=== PATIENT | male | born 1970 | race African-American/Black ===

== ENCOUNTER 2020-10-22 23:03 | Inpatient (IN) ==
[2020-10-23 03:10] LABS: Basophils % 0.5 % (0.0-0.8); Eosinophils # 0.1 10*3/uL (0.0-0.87); Eosinophils % 0.8 % (0.00-10.9); Hematocrit 47.4 VOL% (42.0-52.0); Hemoglobin 14.9 GM/DL (14.0-18.0); Immature Granulocytes % 0.3 %; Immature Granulocytes Absolute 0.03 #; Lymphocytes # 1.9 10*3/uL (1.4-4.0); Lymphocytes % 21.4 % (21.2-54.2); Mean Corpuscular HGB Conc 31.4 GM/DL (32-36); Mean Corpuscular Volume 95.8 FL (87-102); Mean Platelet Volume 12.1 FL (9.6-12.0); Monocytes % 7.7 % (1.7-12.7); Neutrophils % 69.3 % (38.7-73.9); Platelet Count 269 T/CUMM (130-400); Red Blood Count 4.95 MC/CUMM (3.8-5.5); Red Cell Distribution Width 13.2 % (9.3-17.3); White Blood Count 8.8 T/CUMM (4-12)
[2020-10-23 03:22] LABS: Albumin 3.3 G/DL (3.4-5.0); Bilirubin,Total 0.9 MG/DL (0.20-1.00); Calcium 8.7 MG/DL (8.5-10.1); Osmolality,Calculated 286.3 MOS/KG (273-304); Potassium 4.1 MMOL/L (3.5-5.1); Total Protein 6.9 G/DL (6.4-8.2)
[2020-10-23] MEDS ORDERED: FUROSEMIDE 40 MG/4 ML VIAL IV STA (03:36)
[2020-10-23] MEDS ORDERED: ALBUTEROL/IPRATROPIUM 3 ML NEB RESP TX STA (03:46)
[2020-10-23 04:21] LABS: Bilirubin,Urine Negative (Negative); Blood, Urine Negative (Negative); Glucose,Urine (UA) Negative (Negative); Ketones,Urine Negative (Negative); Nitrite,Urine Negative (Negative); Protein,Urine Negative; RBC,Urine 1 /HPF (0-4); Urine Appearance CLEAR (Clear); Urine Color Straw (Yellow); Urine Specific Gravity 1.008 (1.001-1.035); Urine Urobilinogen < 2.0 EU/DL (0.2-1.0)
[2020-10-23] MEDS ORDERED: MAGNESIUM SULF RIDER 4 GM/100 ML PREMIX IV PRN (04:45)
[2020-10-23] MEDS ORDERED: MAGNESIUM SULF RIDER 2 GM/50 ML PREMIX IV PRN (04:45)
[2020-10-23] MEDS ORDERED: DEXTROSE 50% 25 GM/50 ML VIAL IV PRN (04:45)
[2020-10-23] MEDS ORDERED: ONDANSETRON 4 MG/2 ML VIAL IV PRN (04:45)
[2020-10-23] MEDS ORDERED: GLUCAGON 1 MG VIAL IM PRN (04:45)
[2020-10-23] MEDS ORDERED: ZALEPLON 5 MG CAPSULE PO PRN (04:45)
[2020-10-23 07:22] LABS: Barbiturates Screen,Urine Negative (Negative); Benzodiazepines Screen,Urine Negative (Negative); Cannabinoid Screen,Urine Negative (Negative); Opiate Screen,Urine Negative (Negative); Phencyclidine Screen,Urine Negative (Negative)
[2020-10-23] MEDS: ENOXAPARIN 40 MG/0.4 ML SYRINGE SUBCUT SCH (07:48)
[2020-10-23] MEDS: INSULIN REGULAR 100 UNIT/ML SUBCUT SCH ×4 (07:48→21:01)
[2020-10-23] MEDS: METOPROLOL TARTRATE 25 MG TABLET PO SCH ×2 (08:50→21:01)
[2020-10-23] MEDS: PANTOPRAZOLE 40 MG TABLET PO SCH (08:50)
[2020-10-23] MEDS: ASPIRIN EC 81 MG TABLET PO SCH (08:50)
[2020-10-23] MEDS: SPIRONOLACTONE 25 MG TABLET PO SCH ×2 (12:24→21:01)
[2020-10-23] MEDS: FUROSEMIDE 40 MG/4 ML VIAL IV SCH ×2 (14:11→16:25)
[2020-10-23] MEDS: ACETAMINOPHEN 325 MG TABLET PO PRN (18:42)
[2020-10-24] MEDS: ACETAMINOPHEN 325 MG TABLET PO PRN (01:13)
[2020-10-24 05:54] LABS: Basophils % 0.3 % (0.0-0.8); Eosinophils # 0.1 10*3/uL (0.0-0.87); Eosinophils % 1.4 % (0.00-10.9); Hemoglobin 13.9 GM/DL (14.0-18.0); Immature Granulocytes % 0.7 %; Immature Granulocytes Absolute 0.07 #; Lymphocytes # 2.4 10*3/uL (1.4-4.0); Lymphocytes % 22.8 % (21.2-54.2); Mean Corpuscular HGB Conc 30.9 GM/DL (32-36); Mean Platelet Volume 11.2 FL (9.6-12.0); Monocytes % 7.8 % (1.7-12.7); Platelet Count 251 T/CUMM (130-400); Red Blood Count 4.64 MC/CUMM (3.8-5.5); Red Cell Distribution Width 13.3 % (9.3-17.3); White Blood Count 10.3 T/CUMM (4-12)
[2020-10-24] MEDS: ENOXAPARIN 40 MG/0.4 ML SYRINGE SUBCUT SCH (06:04)
[2020-10-24 06:18] LABS: Calcium 8.9 MG/DL (8.5-10.1); Osmolality,Calculated 281.5 MOS/KG (273-304); Potassium 3.8 MMOL/L (3.5-5.1)
[2020-10-24 06:22] LABS: Bilirubin,Total 0.5 MG/DL (0.20-1.00); Calcium 8.8 MG/DL (8.5-10.1); Osmolality,Calculated 285.3 MOS/KG (273-304); Potassium 3.9 MMOL/L (3.5-5.1); Total Protein 6.5 G/DL (6.4-8.2)
[2020-10-24] MEDS: METOPROLOL TARTRATE 25 MG TABLET PO SCH (08:11)
[2020-10-24] MEDS: SPIRONOLACTONE 25 MG TABLET PO SCH ×2 (08:11→20:52)
[2020-10-24] MEDS: ASPIRIN EC 81 MG TABLET PO SCH (08:11)
[2020-10-24] MEDS: PANTOPRAZOLE 40 MG TABLET PO SCH (08:11)
[2020-10-24] MEDS: FUROSEMIDE 40 MG/4 ML VIAL IV SCH (08:12)
[2020-10-24] MEDS: INSULIN REGULAR 100 UNIT/ML SUBCUT SCH ×4 (08:16→20:52)
[2020-10-24] MEDS: METOPROLOL SUCCINATE XL 25 MG TABLET PO SCH (09:29)
[2020-10-24] MEDS: FUROSEMIDE 40 MG TABLET PO SCH (09:29)
[2020-10-24] MEDS: SACUBITRIL/VALSARTAN 49-51 MG TABLET PO SCH ×2 (10:39→20:51)
[2020-10-24] MEDS ORDERED: DEXTROSE 50% 25 GM/50 ML VIAL IV PRN (11:41)
[2020-10-25] MEDS: ENOXAPARIN 40 MG/0.4 ML SYRINGE SUBCUT SCH (04:25)
[2020-10-25 05:16] LABS: Calcium 8.6 MG/DL (8.5-10.1); Osmolality,Calculated 280.5 MOS/KG (273-304); Potassium 3.9 MMOL/L (3.5-5.1)
[2020-10-25 05:21] LABS: Risk Ratio 4.86; VLDL Cholesterol 55.6 MG/DL
[2020-10-25] MEDS: PANTOPRAZOLE 40 MG TABLET PO SCH (08:20)
[2020-10-25] MEDS: ASPIRIN EC 81 MG TABLET PO SCH (08:20)
[2020-10-25] MEDS: SPIRONOLACTONE 25 MG TABLET PO SCH ×2 (08:20→20:55)
[2020-10-25] MEDS: SACUBITRIL/VALSARTAN 49-51 MG TABLET PO SCH ×2 (08:20→20:55)
[2020-10-25] MEDS: METOPROLOL SUCCINATE XL 25 MG TABLET PO SCH (08:21)
[2020-10-25] MEDS: FUROSEMIDE 40 MG TABLET PO SCH (08:21)
[2020-10-25] MEDS ORDERED: FUROSEMIDE 40 MG/4 ML VIAL IV ONE (08:25)
[2020-10-25] MEDS: INSULIN REGULAR 100 UNIT/ML SUBCUT SCH ×4 (10:36→20:50)
[2020-10-26] MEDS: ENOXAPARIN 40 MG/0.4 ML SYRINGE SUBCUT SCH (04:50)
[2020-10-26 05:53] LABS: Calcium 8.8 MG/DL (8.5-10.1); Osmolality,Calculated 283.4 MOS/KG (273-304); Potassium 4.4 MMOL/L (3.5-5.1)
[2020-10-26] MEDS: PANTOPRAZOLE 40 MG TABLET PO SCH (09:46)
[2020-10-26] MEDS: FUROSEMIDE 40 MG TABLET PO SCH (09:47)
[2020-10-26] MEDS: METOPROLOL SUCCINATE XL 25 MG TABLET PO SCH (09:47)
[2020-10-26] MEDS: SACUBITRIL/VALSARTAN 49-51 MG TABLET PO SCH (09:47)
[2020-10-26] MEDS: SPIRONOLACTONE 25 MG TABLET PO SCH (09:47)
[2020-10-26] MEDS: ASPIRIN EC 81 MG TABLET PO SCH (09:47)
[2020-10-26] MEDS: INSULIN REGULAR 100 UNIT/ML SUBCUT SCH (09:54)
[2020-10-26 12:11] VITALS: BP 105/74
== END 2020-10-26 12:29 | disposition home or self-care (01) | DRG 293 ==
LOC: N.EDINP 23:03 → N.ED 23:03 → SUATTDRO 10-23 04:45 → N.EDINP 10-23 12:30 → N.TELEN 10-23 12:35 → SUATTDRO 10-24 16:01
PROVIDERS: ADMIT Hospitalist; ATTEND Internal Medicine Geriatric Medicine

== ENCOUNTER 2021-01-05 18:15 | Inpatient (IN) ==
[2021-01-05 20:17] LABS: Basophils % 0.5 % (0.0-0.8); Eosinophils % 0.4 % (0.00-10.9); Hematocrit 52.2 VOL% (42.0-52.0); Hemoglobin 16.2 GM/DL (14.0-18.0); Immature Granulocytes % 0.6 %; Immature Granulocytes Absolute 0.05 #; Lymphocytes # 2.5 10*3/uL (1.4-4.0); Mean Corpuscular Volume 93.9 FL (87-102); Mean Platelet Volume 12.2 FL (9.6-12.0); Monocytes % 7.4 % (1.7-12.7); Neutrophils % 60.1 % (38.7-73.9); Platelet Count 233 T/CUMM (130-400); Red Blood Count 5.56 MC/CUMM (3.8-5.5); Red Cell Distribution Width 13.8 % (9.3-17.3)
[2021-01-05 20:36] LABS: Calcium 9.4 MG/DL (8.5-10.1); Osmolality,Calculated 285.5 MOS/KG (273-304); Potassium 3.8 MMOL/L (3.5-5.1)
[2021-01-05 21:31] LABS: INR 1.1; PT Patient Result 12.6 SECS (10.5-12.0)
[2021-01-05 21:42] LABS: Albumin 3.5 G/DL (3.4-5.0); Bilirubin,Total 1.5 MG/DL (0.20-1.00); Osmolality,Calculated 281.7 MOS/KG (273-304); Total Protein 7.3 G/DL (6.4-8.2)
[2021-01-05] MEDS ORDERED: GLUCAGON 1 MG VIAL IM PRN (23:28)
[2021-01-05] MEDS ORDERED: DEXTROSE 50% 25 GM/50 ML VIAL IV PRN (23:28)
[2021-01-05] MEDS ORDERED: ONDANSETRON 4 MG/2 ML VIAL IV PRN (23:28)
[2021-01-06 06:11] LABS: Basophils % 0.4 % (0.0-0.8); Eosinophils % 0.5 % (0.00-10.9); Hematocrit 48.1 VOL% (42.0-52.0); Immature Granulocytes % 0.4 %; Immature Granulocytes Absolute 0.03 #; Lymphocytes # 2.3 10*3/uL (1.4-4.0); Lymphocytes % 27.5 % (21.2-54.2); Mean Corpuscular HGB Conc 31.2 GM/DL (32-36); Mean Corpuscular Volume 92.5 FL (87-102); Mean Platelet Volume 11.7 FL (9.6-12.0); Monocytes % 7.6 % (1.7-12.7); Neutrophils % 63.6 % (38.7-73.9); Platelet Count 209 T/CUMM (130-400); Red Cell Distribution Width 13.7 % (9.3-17.3); White Blood Count 8.4 T/CUMM (4-12)
[2021-01-06 07:59] LABS: Osmolality,Calculated 283.5 MOS/KG (273-304); Potassium 3.8 MMOL/L (3.5-5.1)
[2021-01-06] MEDS ORDERED: FUROSEMIDE 40 MG/4 ML VIAL IV SCH (09:00)
[2021-01-06] MEDS ORDERED: MAGNESIUM SULF RIDER 2 GM/50 ML PREMIX IV PRN (09:15)
[2021-01-06] MEDS ORDERED: POTASSIUM CHLORIDE RIDER 10 MEQ/100 ML PREMIX IV PRN (09:15)
[2021-01-06] MEDS: SPIRONOLACTONE 25 MG TABLET PO SCH ×2 (09:23→20:42)
[2021-01-06] MEDS: ASPIRIN EC 81 MG TABLET PO SCH (09:23)
[2021-01-06] MEDS: SACUBITRIL/VALSARTAN 49-51 MG TABLET PO SCH ×2 (09:23→20:42)
[2021-01-06] MEDS: METOPROLOL SUCCINATE XL 25 MG TABLET PO SCH (09:23)
[2021-01-06] MEDS: FUROSEMIDE 40 MG TABLET PO SCH ×2 (09:23→17:19)
[2021-01-06] MEDS: PANTOPRAZOLE 40 MG TABLET PO SCH (09:23)
[2021-01-06] MEDS: ENOXAPARIN 40 MG/0.4 ML SYRINGE SUBCUT SCH (09:24)
[2021-01-06] MEDS: CETIRIZINE 10 MG TABLET PO SCH (09:29)
[2021-01-06] MEDS: BENZONATATE 100 MG CAPSULE PO SCH ×3 (09:29→20:42)
[2021-01-06] MEDS ORDERED: DIAZEPAM 5 MG TABLET PO ONE (12:30)
[2021-01-06] MEDS ORDERED: LIDOCAINE 1%/EPI INJ 20 ML VIAL ONE ×2 (14:23→15:19)
[2021-01-06] MEDS ORDERED: HEPARIN/NACL 0.9% 2 UNITS/ML 2,000 UNIT/1,000 ML BAG IV ONE (14:23)
[2021-01-06] MEDS ORDERED: diphenhydrAMINE CAP 50 MG CAPSULE PO ONE (14:30)
[2021-01-06] MEDS ORDERED: MIDAZOLAM 2 MG/2 ML VIAL ONE (15:19)
[2021-01-06] MEDS ORDERED: fentaNYL 100 MCG/2 ML VIAL ONE (15:19)
[2021-01-06] MEDS ORDERED: TISSUE ADHESIVE 1 EACH APPLICATOR TOP ONE (16:42)
[2021-01-07 05:53] LABS: Basophils % 0.5 % (0.0-0.8); Eosinophils % 0.4 % (0.00-10.9); Hematocrit 47.5 VOL% (42.0-52.0); Immature Granulocytes % 0.6 %; Immature Granulocytes Absolute 0.05 #; Lymphocytes % 24.1 % (21.2-54.2); Mean Corpuscular HGB Conc 31.6 GM/DL (32-36); Mean Corpuscular Volume 92.2 FL (87-102); Monocytes % 8.6 % (1.7-12.7); Neutrophils % 65.8 % (38.7-73.9); Platelet Count 223 T/CUMM (130-400); Red Blood Count 5.15 MC/CUMM (3.8-5.5); Red Cell Distribution Width 13.8 % (9.3-17.3); White Blood Count 8.3 T/CUMM (4-12)
[2021-01-07 06:18] LABS: Calcium 8.4 MG/DL (8.5-10.1); Osmolality,Calculated 282.8 MOS/KG (273-304); Potassium 3.7 MMOL/L (3.5-5.1)
[2021-01-07] MEDS ORDERED: MAGNESIUM SULF RIDER 2 GM/50 ML PREMIX IV ONE (08:37)
[2021-01-07] MEDS: CETIRIZINE 10 MG TABLET PO SCH (09:45)
[2021-01-07] MEDS: PANTOPRAZOLE 40 MG TABLET PO SCH (09:46)
[2021-01-07] MEDS: FUROSEMIDE 40 MG TABLET PO SCH ×2 (09:46→15:05)
[2021-01-07] MEDS: ASPIRIN EC 81 MG TABLET PO SCH (09:46)
[2021-01-07] MEDS: SPIRONOLACTONE 25 MG TABLET PO SCH ×2 (09:46→21:09)
[2021-01-07] MEDS: BENZONATATE 100 MG CAPSULE PO SCH ×3 (09:46→21:09)
[2021-01-07] MEDS: ENOXAPARIN 40 MG/0.4 ML SYRINGE SUBCUT SCH (09:46)
[2021-01-07] MEDS: METOPROLOL SUCCINATE XL 25 MG TABLET PO SCH (09:47)
[2021-01-07] MEDS: SACUBITRIL/VALSARTAN 49-51 MG TABLET PO SCH (10:28)
[2021-01-07] MEDS: ALBUTEROL/IPRATROPIUM 3 ML NEB RESP TX SCH (20:10)
[2021-01-08] MEDS: ALBUTEROL/IPRATROPIUM 3 ML NEB RESP TX SCH ×4 (01:20→19:45)
[2021-01-08 04:13] LABS: Basophils # 0.1 10*3/uL (0.0-0.2); Eosinophils % 0.3 % (0.00-10.9); Hematocrit 46.1 VOL% (42.0-52.0); Hemoglobin 14.8 GM/DL (14.0-18.0); Immature Granulocytes % 0.4 %; Immature Granulocytes Absolute 0.04 #; Lymphocytes # 3.1 10*3/uL (1.4-4.0); Lymphocytes % 32.3 % (21.2-54.2); Mean Corpuscular HGB Conc 32.1 GM/DL (32-36); Mean Corpuscular Volume 91.3 FL (87-102); Monocytes % 7.9 % (1.7-12.7); Neutrophils % 58.1 % (38.7-73.9); Platelet Count 212 T/CUMM (130-400); Red Blood Count 5.05 MC/CUMM (3.8-5.5); White Blood Count 9.5 T/CUMM (4-12)
[2021-01-08 04:31] LABS: Calcium 8.4 MG/DL (8.5-10.1); Osmolality,Calculated 281.8 MOS/KG (273-304); Potassium 3.6 MMOL/L (3.5-5.1)
[2021-01-08] MEDS: ASPIRIN EC 81 MG TABLET PO SCH (10:06)
[2021-01-08] MEDS: METOPROLOL SUCCINATE XL 25 MG TABLET PO SCH (10:07)
[2021-01-08] MEDS: BENZONATATE 100 MG CAPSULE PO SCH ×3 (10:08→20:26)
[2021-01-08] MEDS: CETIRIZINE 10 MG TABLET PO SCH (10:08)
[2021-01-08] MEDS: PANTOPRAZOLE 40 MG TABLET PO SCH (10:08)
[2021-01-08] MEDS: SPIRONOLACTONE 25 MG TABLET PO SCH ×2 (10:08→20:27)
[2021-01-08] MEDS: FUROSEMIDE 40 MG TABLET PO SCH ×2 (10:09→15:41)
[2021-01-08] MEDS: ENOXAPARIN 40 MG/0.4 ML SYRINGE SUBCUT SCH (10:09)
[2021-01-08] MEDS ORDERED: SODIUM CHLORIDE 0.45% 1,000 ML IV SCH (11:00)
[2021-01-09] MEDS: ALBUTEROL/IPRATROPIUM 3 ML NEB RESP TX SCH ×4 (01:50→19:10)
[2021-01-09] MEDS ORDERED: DIGOXIN 0.5 MG/2 ML AMP IV ONE (06:44)
[2021-01-09 07:31] LABS: Basophils % 0.3 % (0.0-0.8); Eosinophils % 0.3 % (0.00-10.9); Hematocrit 45.5 VOL% (42.0-52.0); Hemoglobin 14.5 GM/DL (14.0-18.0); Immature Granulocytes % 0.4 %; Immature Granulocytes Absolute 0.04 #; Lymphocytes # 2.9 10*3/uL (1.4-4.0); Lymphocytes % 30.7 % (21.2-54.2); Mean Corpuscular HGB Conc 31.9 GM/DL (32-36); Mean Corpuscular Volume 90.6 FL (87-102); Mean Platelet Volume 11.8 FL (9.6-12.0); Monocytes % 7.3 % (1.7-12.7); Platelet Count 217 T/CUMM (130-400); Red Blood Count 5.02 MC/CUMM (3.8-5.5); Red Cell Distribution Width 14.3 % (9.3-17.3); White Blood Count 9.6 T/CUMM (4-12)
[2021-01-09 08:05] LABS: Calcium 8.8 MG/DL (8.5-10.1); Osmolality,Calculated 277.1 MOS/KG (273-304); Potassium 3.9 MMOL/L (3.5-5.1)
[2021-01-09] MEDS ORDERED: DIGOXIN 0.125 MG TABLET PO ONE (08:09)
[2021-01-09] MEDS: PANTOPRAZOLE 40 MG TABLET PO SCH (08:36)
[2021-01-09] MEDS: BENZONATATE 100 MG CAPSULE PO SCH ×3 (08:36→20:37)
[2021-01-09] MEDS: ASPIRIN EC 81 MG TABLET PO SCH (08:37)
[2021-01-09] MEDS: FUROSEMIDE 40 MG TABLET PO SCH ×2 (08:37→15:46)
[2021-01-09] MEDS: SPIRONOLACTONE 25 MG TABLET PO SCH ×2 (08:37→20:36)
[2021-01-09] MEDS: CETIRIZINE 10 MG TABLET PO SCH (08:37)
[2021-01-09] MEDS: ENOXAPARIN 40 MG/0.4 ML SYRINGE SUBCUT SCH (08:38)
[2021-01-09] MEDS: METOPROLOL SUCCINATE XL 25 MG TABLET PO SCH (08:38)
[2021-01-09] MEDS: ACETAMINOPHEN 325 MG TABLET PO PRN (14:28)
[2021-01-10] MEDS: ALBUTEROL/IPRATROPIUM 3 ML NEB RESP TX SCH ×3 (01:17→19:47)
[2021-01-10] MEDS: CETIRIZINE 10 MG TABLET PO SCH (08:57)
[2021-01-10] MEDS: SPIRONOLACTONE 25 MG TABLET PO SCH ×2 (08:57→20:39)
[2021-01-10] MEDS: ENOXAPARIN 40 MG/0.4 ML SYRINGE SUBCUT SCH (08:57)
[2021-01-10] MEDS: FUROSEMIDE 40 MG TABLET PO SCH ×2 (08:58→15:29)
[2021-01-10] MEDS: PANTOPRAZOLE 40 MG TABLET PO SCH (08:58)
[2021-01-10] MEDS: ASPIRIN EC 81 MG TABLET PO SCH (08:58)
[2021-01-10] MEDS: METOPROLOL SUCCINATE XL 25 MG TABLET PO SCH (08:58)
[2021-01-10] MEDS: BENZONATATE 100 MG CAPSULE PO SCH ×3 (08:58→20:39)
[2021-01-11] MEDS: ALBUTEROL/IPRATROPIUM 3 ML NEB RESP TX SCH ×5 (00:50→19:10)
[2021-01-11 08:46] LABS: Calcium 8.7 MG/DL (8.5-10.1); Osmolality,Calculated 280.1 MOS/KG (273-304)
[2021-01-11] MEDS: ASPIRIN EC 81 MG TABLET PO SCH (08:58)
[2021-01-11] MEDS: METOPROLOL SUCCINATE XL 25 MG TABLET PO SCH (08:58)
[2021-01-11] MEDS: BENZONATATE 100 MG CAPSULE PO SCH ×3 (08:58→21:16)
[2021-01-11] MEDS: ENOXAPARIN 40 MG/0.4 ML SYRINGE SUBCUT SCH (08:58)
[2021-01-11] MEDS: SPIRONOLACTONE 25 MG TABLET PO SCH ×2 (08:58→21:16)
[2021-01-11] MEDS: CETIRIZINE 10 MG TABLET PO SCH (08:58)
[2021-01-11] MEDS: FUROSEMIDE 40 MG TABLET PO SCH ×2 (08:58→16:27)
[2021-01-11] MEDS: PANTOPRAZOLE 40 MG TABLET PO SCH (08:59)
[2021-01-11 09:01] LABS: Basophils % 0.3 % (0.0-0.8); Eosinophils % 0.3 % (0.00-10.9); Hematocrit 45.6 VOL% (42.0-52.0); Hemoglobin 14.3 GM/DL (14.0-18.0); Immature Granulocytes % 0.5 %; Immature Granulocytes Absolute 0.06 #; Lymphocytes # 3.1 10*3/uL (1.4-4.0); Lymphocytes % 25.9 % (21.2-54.2); Mean Corpuscular HGB Conc 31.4 GM/DL (32-36); Mean Corpuscular Volume 92.5 FL (87-102); Mean Platelet Volume 12.4 FL (9.6-12.0); Monocytes % 7.9 % (1.7-12.7); Neutrophils % 65.1 % (38.7-73.9); Platelet Count 249 T/CUMM (130-400); Red Blood Count 4.93 MC/CUMM (3.8-5.5); Red Cell Distribution Width 14.6 % (9.3-17.3); White Blood Count 11.8 T/CUMM (4-12)
[2021-01-12] MEDS: ALBUTEROL/IPRATROPIUM 3 ML NEB RESP TX SCH ×3 (01:58→13:19)
[2021-01-12] MEDS: ACETAMINOPHEN 325 MG TABLET PO PRN (02:13)
[2021-01-12 07:15] LABS: Basophils % 0.2 % (0.0-0.8); Eosinophils % 0.2 % (0.00-10.9); Hematocrit 45.3 VOL% (42.0-52.0); Hemoglobin 14.5 GM/DL (14.0-18.0); Immature Granulocytes % 0.6 %; Immature Granulocytes Absolute 0.06 #; Lymphocytes # 2.4 10*3/uL (1.4-4.0); Mean Corpuscular Volume 92.1 FL (87-102); Mean Platelet Volume 12.5 FL (9.6-12.0); Monocytes % 9.6 % (1.7-12.7); Neutrophils % 64.4 % (38.7-73.9); Platelet Count 244 T/CUMM (130-400); Red Blood Count 4.92 MC/CUMM (3.8-5.5); Red Cell Distribution Width 14.7 % (9.3-17.3); White Blood Count 9.6 T/CUMM (4-12)
[2021-01-12 07:35] LABS: Osmolality,Calculated 283.7 MOS/KG (273-304)
[2021-01-12] MEDS: CETIRIZINE 10 MG TABLET PO SCH (08:20)
[2021-01-12] MEDS: BENZONATATE 100 MG CAPSULE PO SCH ×2 (08:20→15:09)
[2021-01-12] MEDS: ENOXAPARIN 40 MG/0.4 ML SYRINGE SUBCUT SCH (08:21)
[2021-01-12] MEDS: ASPIRIN EC 81 MG TABLET PO SCH (08:21)
[2021-01-12] MEDS: SPIRONOLACTONE 25 MG TABLET PO SCH (08:21)
[2021-01-12] MEDS: PANTOPRAZOLE 40 MG TABLET PO SCH (08:21)
[2021-01-12] MEDS: FUROSEMIDE 40 MG TABLET PO SCH ×2 (08:21→16:04)
[2021-01-12] MEDS: METOPROLOL SUCCINATE XL 25 MG TABLET PO SCH (08:21)
[2021-01-12] MEDS ORDERED: HYDROcodone/CHLORPHENIRAMINE ER 5 ML UDCUP PO PRN (09:33)
[2021-01-12 15:54] VITALS: BP 115/78
== END 2021-01-12 16:03 | disposition home or self-care (01) | DRG 287 ==
LOC: N.ED 18:15 → N.TELES 23:28 → SUATTDRO 23:28 → N.TELES 01-06 02:28
PROVIDERS: ADMIT Internal Medicine Geriatric Medicine; ATTEND Internal Medicine

== ENCOUNTER 2021-01-23 11:02 | Inpatient (IN) ==
[2021-01-23] MEDS ORDERED: ASPIRIN 325 MG TABLET PO STA (11:24)
[2021-01-23] MEDS ORDERED: FUROSEMIDE 40 MG/4 ML VIAL IV STA (11:24)
[2021-01-23] MEDS ORDERED: ONDANSETRON 4 MG/2 ML VIAL IV ONE (11:24)
[2021-01-23 11:47] LABS: Basophils % 0.2 % (0.0-0.8); Eosinophils # 0.1 10*3/uL (0.0-0.87); Eosinophils % 0.7 % (0.00-10.9); Hematocrit 46.6 VOL% (42.0-52.0); Hemoglobin 15.2 GM/DL (14.0-18.0); Immature Granulocytes % 0.3 %; Immature Granulocytes Absolute 0.03 #; Lymphocytes # 2.1 10*3/uL (1.4-4.0); Mean Corpuscular HGB Conc 32.6 GM/DL (32-36); Mean Corpuscular Volume 91.4 FL (87-102); Mean Platelet Volume 11.5 FL (9.6-12.0); Monocytes % 7.2 % (1.7-12.7); Neutrophils % 67.6 % (38.7-73.9); Platelet Count 279 T/CUMM (130-400); Red Cell Distribution Width 15.7 % (9.3-17.3); White Blood Count 8.7 T/CUMM (4-12)
[2021-01-23 12:03] LABS: Albumin 2.8 G/DL (3.4-5.0); Bilirubin,Total 1.7 MG/DL (0.20-1.00); Calcium 8.8 MG/DL (8.5-10.1); Osmolality,Calculated 285.5 MOS/KG (273-304); Potassium 3.3 MMOL/L (3.5-5.1); Total Protein 6.8 G/DL (6.4-8.2)
[2021-01-23 12:15] LABS: INR 1.3
[2021-01-23 13:03] LABS: Barbiturates Screen,Urine Negative (Negative); Benzodiazepines Screen,Urine Negative (Negative); Cannabinoid Screen,Urine Negative (Negative); Opiate Screen,Urine Negative (Negative); Phencyclidine Screen,Urine Negative (Negative)
[2021-01-23] MEDS ORDERED: DEXTROSE 50% 25 GM/50 ML VIAL IV PRN (15:17)
[2021-01-23] MEDS ORDERED: GLUCAGON 1 MG VIAL IM PRN (15:17)
[2021-01-23] MEDS: PANTOPRAZOLE 40 MG TABLET PO SCH (15:27)
[2021-01-23] MEDS: FUROSEMIDE 40 MG/4 ML VIAL IV SCH ×2 (15:27→22:14)
[2021-01-23] MEDS ORDERED: POTASSIUM CHLORIDE 20 MEQ TABLET PO ONE (15:29)
[2021-01-23] MEDS: INSULIN REGULAR 100 UNIT/ML SUBCUT SCH ×2 (16:08→22:15)
[2021-01-23 16:23] LABS: Basophils % 0.1 % (0.0-0.8); Eosinophils % 0.6 % (0.00-10.9); Hematocrit 49.2 VOL% (42.0-52.0); Hemoglobin 15.6 GM/DL (14.0-18.0); Immature Granulocytes % 0.4 %; Immature Granulocytes Absolute 0.03 #; Lymphocytes # 2.1 10*3/uL (1.4-4.0); Lymphocytes % 29.4 % (21.2-54.2); Mean Corpuscular HGB Conc 31.7 GM/DL (32-36); Mean Corpuscular Volume 94.1 FL (87-102); Mean Platelet Volume 11.5 FL (9.6-12.0); Neutrophils % 63.5 % (38.7-73.9); Platelet Count 239 T/CUMM (130-400); Red Blood Count 5.23 MC/CUMM (3.8-5.5); Red Cell Distribution Width 15.8 % (9.3-17.3)
[2021-01-23 16:27] LABS: Calcium 8.7 MG/DL (8.5-10.1); Osmolality,Calculated 286.4 MOS/KG (273-304); Potassium 3.4 MMOL/L (3.5-5.1)
[2021-01-23] MEDS: ALBUTEROL/IPRATROPIUM 3 ML NEB RESP TX SCH (19:30)
[2021-01-23] MEDS: ENOXAPARIN 40 MG/0.4 ML SYRINGE SUBCUT SCH (22:14)
[2021-01-23] MEDS: SPIRONOLACTONE 25 MG TABLET PO SCH (22:14)
[2021-01-23] MEDS: METOPROLOL SUCCINATE XL 25 MG TABLET PO SCH (22:15)
[2021-01-23] MEDS: ATORVASTATIN 40 MG TABLET PO SCH (22:15)
[2021-01-23] MEDS: LOSARTAN 25 MG TABLET PO SCH (22:15)
[2021-01-24] MEDS: ALBUTEROL/IPRATROPIUM 3 ML NEB RESP TX SCH ×4 (00:44→19:40)
[2021-01-24 04:44] LABS: Basophils % 0.3 % (0.0-0.8); Eosinophils # 0.1 10*3/uL (0.0-0.87); Eosinophils % 0.6 % (0.00-10.9); Hematocrit 45.3 VOL% (42.0-52.0); Hemoglobin 14.2 GM/DL (14.0-18.0); Immature Granulocytes % 0.4 %; Immature Granulocytes Absolute 0.03 #; Lymphocytes # 1.7 10*3/uL (1.4-4.0); Lymphocytes % 21.2 % (21.2-54.2); Mean Corpuscular HGB Conc 31.3 GM/DL (32-36); Mean Corpuscular Volume 93.4 FL (87-102); Mean Platelet Volume 11.6 FL (9.6-12.0); Monocytes % 8.3 % (1.7-12.7); Neutrophils % 69.2 % (38.7-73.9); Platelet Count 235 T/CUMM (130-400); Red Blood Count 4.85 MC/CUMM (3.8-5.5); Red Cell Distribution Width 15.8 % (9.3-17.3); White Blood Count 7.8 T/CUMM (4-12)
[2021-01-24 05:20] LABS: Calcium 8.6 MG/DL (8.5-10.1); Potassium 3.7 MMOL/L (3.5-5.1); Risk Ratio 4.48; Thyroid Stimulating Hormone 1.05 uIU/ml (0.358-3.74); VLDL Cholesterol 12.4 MG/DL
[2021-01-24] MEDS: FUROSEMIDE 40 MG/4 ML VIAL IV SCH ×2 (08:45→22:23)
[2021-01-24] MEDS: SPIRONOLACTONE 25 MG TABLET PO SCH ×2 (08:45→22:22)
[2021-01-24] MEDS: ASPIRIN CHEW 81 MG TABLET PO SCH (08:45)
[2021-01-24] MEDS: LOSARTAN 25 MG TABLET PO SCH (08:45)
[2021-01-24] MEDS: METOPROLOL SUCCINATE XL 25 MG TABLET PO SCH (08:45)
[2021-01-24] MEDS: PANTOPRAZOLE 40 MG TABLET PO SCH (08:45)
[2021-01-24] MEDS: INSULIN REGULAR 100 UNIT/ML SUBCUT SCH ×4 (10:14→23:23)
[2021-01-24] MEDS: hydrALAZINE 25 MG TABLET PO SCH ×2 (17:03→22:22)
[2021-01-24] MEDS: ATORVASTATIN 40 MG TABLET PO SCH (22:22)
[2021-01-24] MEDS: ENOXAPARIN 40 MG/0.4 ML SYRINGE SUBCUT SCH (22:22)
[2021-01-25] MEDS: ALBUTEROL/IPRATROPIUM 3 ML NEB RESP TX SCH ×4 (00:44→19:57)
[2021-01-25 06:12] LABS: Basophils % 0.3 % (0.0-0.8); Eosinophils % 0.2 % (0.00-10.9); Hematocrit 44.6 VOL% (42.0-52.0); Hemoglobin 13.8 GM/DL (14.0-18.0); Immature Granulocytes % 0.4 %; Immature Granulocytes Absolute 0.04 #; Lymphocytes # 1.3 10*3/uL (1.4-4.0); Lymphocytes % 13.5 % (21.2-54.2); Mean Corpuscular HGB Conc 30.9 GM/DL (32-36); Mean Corpuscular Volume 92.7 FL (87-102); Mean Platelet Volume 11.9 FL (9.6-12.0); Monocytes % 9.9 % (1.7-12.7); Neutrophils % 75.7 % (38.7-73.9); Platelet Count 239 T/CUMM (130-400); Red Blood Count 4.81 MC/CUMM (3.8-5.5); Red Cell Distribution Width 15.8 % (9.3-17.3); White Blood Count 9.9 T/CUMM (4-12)
[2021-01-25 06:33] LABS: Calcium 8.7 MG/DL (8.5-10.1); Osmolality,Calculated 287.1 MOS/KG (273-304); Potassium 3.6 MMOL/L (3.5-5.1)
[2021-01-25] MEDS: INSULIN REGULAR 100 UNIT/ML SUBCUT SCH ×4 (07:33→20:35)
[2021-01-25 08:47] LABS: Albumin 2.6 G/DL (3.4-5.0); Bilirubin,Direct 1.05 MG/DL (0.0-0.20); Total Protein 6.5 G/DL (6.4-8.2)
[2021-01-25] MEDS ORDERED: POTASSIUM CHLORIDE 20 MEQ TABLET PO ONE (09:02)
[2021-01-25] MEDS: hydrALAZINE 25 MG TABLET PO SCH ×2 (09:28→16:17)
[2021-01-25] MEDS: PANTOPRAZOLE 40 MG TABLET PO SCH (09:29)
[2021-01-25] MEDS: METOPROLOL SUCCINATE XL 25 MG TABLET PO SCH (09:29)
[2021-01-25] MEDS: SPIRONOLACTONE 25 MG TABLET PO SCH (09:29)
[2021-01-25] MEDS: ASPIRIN CHEW 81 MG TABLET PO SCH (09:29)
[2021-01-25] MEDS: ISOSORBIDE MONONITRATE 30 MG TABLET PO SCH (09:29)
[2021-01-25 09:31] LABS: Hepatitis B Core IgM Quant 0.07 Index; Hepatitis B Surface Ag Quant 0.17 Index; Hepatitis B Surface Ag Result Non-Reactive (NonReactive); Hepatitis C Virus Ab Quant 0.07 Index; Hepatitis C Virus Ab Result Non-Reactive (NonReactive)
[2021-01-25] MEDS: FUROSEMIDE 40 MG/4 ML VIAL IV SCH ×2 (09:32→20:43)
[2021-01-25] MEDS: DOBUTamine 500 MG/250 ML PREMIX IV SCH ×3 (09:38→20:19)
[2021-01-25] MEDS ORDERED: ALBUTEROL 1.25 MG/3 ML NEB RESP TX PRN (10:59)
[2021-01-25] MEDS: AZITHROMYCIN 250 MG TABLET PO SCH (12:21)
[2021-01-25] MEDS: cefTRIAXone 1,000 MG in SODIUM CHLORIDE 0.9% 100 ML IV SCH (15:20)
[2021-01-25] MEDS: ATORVASTATIN 40 MG TABLET PO SCH (20:44)
[2021-01-25] MEDS: ENOXAPARIN 40 MG/0.4 ML SYRINGE SUBCUT SCH (20:44)
[2021-01-25] MEDS: ACETAMINOPHEN 325 MG TABLET PO PRN (23:06)
[2021-01-26] MEDS: ALBUTEROL/IPRATROPIUM 3 ML NEB RESP TX SCH ×4 (01:12→19:32)
[2021-01-26 05:44] LABS: Basophils % 0.3 % (0.0-0.8); Eosinophils % 0.3 % (0.00-10.9); Hematocrit 43.3 VOL% (42.0-52.0); Hemoglobin 13.6 GM/DL (14.0-18.0); Immature Granulocytes % 0.5 %; Immature Granulocytes Absolute 0.06 #; Lymphocytes # 1.6 10*3/uL (1.4-4.0); Lymphocytes % 13.3 % (21.2-54.2); Mean Corpuscular HGB Conc 31.4 GM/DL (32-36); Mean Corpuscular Volume 92.1 FL (87-102); Mean Platelet Volume 11.6 FL (9.6-12.0); Monocytes % 9.3 % (1.7-12.7); Neutrophils % 76.3 % (38.7-73.9); Platelet Count 217 T/CUMM (130-400); Red Cell Distribution Width 15.8 % (9.3-17.3); White Blood Count 11.6 T/CUMM (4-12)
[2021-01-26 06:27] LABS: Calcium 8.6 MG/DL (8.5-10.1); Osmolality,Calculated 283.4 MOS/KG (273-304); Potassium 3.3 MMOL/L (3.5-5.1)
[2021-01-26] MEDS: INSULIN REGULAR 100 UNIT/ML SUBCUT SCH ×4 (08:57→21:20)
[2021-01-26] MEDS: POTASSIUM CHLORIDE 20 MEQ TABLET PO SCH ×2 (09:09→10:05)
[2021-01-26] MEDS: ASPIRIN CHEW 81 MG TABLET PO SCH (09:09)
[2021-01-26] MEDS: ISOSORBIDE MONONITRATE 30 MG TABLET PO SCH (09:09)
[2021-01-26] MEDS: AZITHROMYCIN 250 MG TABLET PO SCH (09:09)
[2021-01-26] MEDS: PANTOPRAZOLE 40 MG TABLET PO SCH ×2 (09:09→21:21)
[2021-01-26] MEDS: METOPROLOL SUCCINATE XL 25 MG TABLET PO SCH (09:09)
[2021-01-26] MEDS: DOBUTamine 500 MG/250 ML PREMIX IV SCH ×3 (09:09→21:20)
[2021-01-26] MEDS: FUROSEMIDE 40 MG/4 ML VIAL IV SCH ×2 (09:10→21:21)
[2021-01-26 09:33] LABS: Bilirubin,Urine Negative (Negative); Blood, Urine Negative (Negative); Glucose,Urine (UA) Negative (Negative); Ketones,Urine Negative (Negative); Mucus,Urine Occasional /LPF (Occasional); Nitrite,Urine Negative (Negative); Protein,Urine Negative; RBC,Urine <1 /HPF (0-4); Squamous Epithelial Cell,Urine Occasional /HPF (0-10); Urine Appearance CLEAR (Clear); Urine Color Amber (Yellow); Urine Specific Gravity 1.014 (1.001-1.035)
[2021-01-26] MEDS: cefTRIAXone 1,000 MG in SODIUM CHLORIDE 0.9% 100 ML IV SCH (10:05)
[2021-01-26] MEDS: BENZONATATE 100 MG CAPSULE PO SCH ×2 (10:53→21:21)
[2021-01-26] MEDS ORDERED: CLINDAMYCIN INJ 600 MG/50 ML PREMIX IV SCH (12:00)
[2021-01-26] MEDS: PIPERACILLIN/TAZOBACTAM 3,375 MG in SODIUM CHLORIDE 0.9% 100 ML IV SCH ×2 (15:10→23:42)
[2021-01-26] MEDS: methylPREDNISolone SOD SUC 40 MG/1 ML VIAL IV SCH ×2 (16:45→23:40)
[2021-01-26] MEDS: ATORVASTATIN 40 MG TABLET PO SCH (21:21)
[2021-01-26] MEDS: ENOXAPARIN 40 MG/0.4 ML SYRINGE SUBCUT SCH (21:21)
[2021-01-27] MEDS: ALBUTEROL/IPRATROPIUM 3 ML NEB RESP TX SCH ×4 (01:22→18:56)
[2021-01-27] MEDS: DOBUTamine 500 MG/250 ML PREMIX IV SCH ×3 (04:08→15:34)
[2021-01-27 05:20] LABS: Basophils % 0.1 % (0.0-0.8); Hematocrit 45.1 VOL% (42.0-52.0); Hemoglobin 14.3 GM/DL (14.0-18.0); Immature Granulocytes % 0.6 %; Immature Granulocytes Absolute 0.07 #; Lymphocytes # 0.5 10*3/uL (1.4-4.0); Mean Corpuscular HGB Conc 31.7 GM/DL (32-36); Mean Corpuscular Volume 92.4 FL (87-102); Mean Platelet Volume 11.9 FL (9.6-12.0); Monocytes % 3.2 % (1.7-12.7); Neutrophils % 92.1 % (38.7-73.9); Platelet Count 216 T/CUMM (130-400); Red Blood Count 4.88 MC/CUMM (3.8-5.5); Red Cell Distribution Width 15.9 % (9.3-17.3); White Blood Count 12.5 T/CUMM (4-12)
[2021-01-27 05:38] LABS: Calcium 9.1 MG/DL (8.5-10.1); Osmolality,Calculated 283.8 MOS/KG (273-304); Potassium 3.9 MMOL/L (3.5-5.1)
[2021-01-27 05:56] LABS: Band Neutrophils 1 % (0-10); Hypochromasia 1+; Lymphocytes 9 % (20-55); Segmented Neutrophils 88 % (50-85); Target Cells Slight; Total Cells Counted 100
[2021-01-27 05:57] LABS: Microcytosis 1+; Platelet Estimate Normal
[2021-01-27] MEDS ORDERED: MEPERIDINE 50 MG/1 ML VIAL IM ONE (07:00)
[2021-01-27] MEDS ORDERED: PROMETHAZINE 25 MG/1 ML VIAL IM ONE (07:00)
[2021-01-27] MEDS ORDERED: MIDAZOLAM 2 MG/2 ML VIAL IV ONE (07:30)
[2021-01-27] MEDS ORDERED: LIDOCAINE 2% 20 ML VIAL RESP TX ONE (07:30)
[2021-01-27] MEDS ORDERED: LIDOCAINE 1% 20 ML VIAL MISC INJ ONE (07:30)
[2021-01-27] MEDS ORDERED: LIDOCAINE 2% VISCOUS 100 ML BOTTLE SWISH/SPIT ONE (07:30)
[2021-01-27] MEDS: methylPREDNISolone SOD SUC 40 MG/1 ML VIAL IV SCH ×2 (08:36→16:47)
[2021-01-27] MEDS: FUROSEMIDE 40 MG/4 ML VIAL IV SCH ×2 (08:36→20:30)
[2021-01-27] MEDS: INSULIN REGULAR 100 UNIT/ML SUBCUT SCH ×4 (08:41→20:30)
[2021-01-27] MEDS: BENZONATATE 100 MG CAPSULE PO SCH ×2 (10:20→20:30)
[2021-01-27] MEDS: ISOSORBIDE MONONITRATE 30 MG TABLET PO SCH (10:20)
[2021-01-27] MEDS: PANTOPRAZOLE 40 MG TABLET PO SCH ×2 (10:20→20:30)
[2021-01-27] MEDS: MULTIVITAMIN (CENTRUM) TABLET PO SCH (10:20)
[2021-01-27] MEDS: METOPROLOL SUCCINATE XL 25 MG TABLET PO SCH (10:20)
[2021-01-27] MEDS: ASPIRIN CHEW 81 MG TABLET PO SCH (10:20)
[2021-01-27] MEDS ORDERED: DEXTROSE 50% 25 GM/50 ML VIAL IV PRN (10:24)
[2021-01-27] MEDS: PIPERACILLIN/TAZOBACTAM 3,375 MG in SODIUM CHLORIDE 0.9% 100 ML IV SCH ×2 (10:54→16:51)
[2021-01-27] MEDS: ENOXAPARIN 40 MG/0.4 ML SYRINGE SUBCUT SCH (20:29)
[2021-01-27] MEDS: ATORVASTATIN 40 MG TABLET PO SCH (20:30)
[2021-01-27 22:41] LABS: Specimen Source NASAL PASSAGE
[2021-01-28] MEDS: ALBUTEROL/IPRATROPIUM 3 ML NEB RESP TX SCH ×4 (01:28→19:00)
[2021-01-28] MEDS: PIPERACILLIN/TAZOBACTAM 3,375 MG in SODIUM CHLORIDE 0.9% 100 ML IV SCH ×3 (02:22→16:01)
[2021-01-28] MEDS: methylPREDNISolone SOD SUC 40 MG/1 ML VIAL IV SCH ×3 (02:22→16:06)
[2021-01-28] MEDS: DOBUTamine 500 MG/250 ML PREMIX IV SCH ×2 (03:44→16:15)
[2021-01-28 05:37] LABS: Basophils % 0.1 % (0.0-0.8); Hematocrit 42.6 VOL% (42.0-52.0); Hemoglobin 13.3 GM/DL (14.0-18.0); Immature Granulocytes % 0.4 %; Immature Granulocytes Absolute 0.08 #; Lymphocytes # 0.6 10*3/uL (1.4-4.0); Lymphocytes % 3.1 % (21.2-54.2); Mean Corpuscular HGB Conc 31.2 GM/DL (32-36); Mean Corpuscular Volume 92.6 FL (87-102); Mean Platelet Volume 11.8 FL (9.6-12.0); Monocytes % 4.4 % (1.7-12.7); Platelet Count 217 T/CUMM (130-400); White Blood Count 17.9 T/CUMM (4-12)
[2021-01-28 06:00] LABS: Band Neutrophils 1 % (0-10); Lymphocytes 4 % (20-55); Platelet Estimate Adequate; Potassium 3.8 MMOL/L (3.5-5.1); Segmented Neutrophils 93 % (50-85); Total Cells Counted 100
[2021-01-28 08:39] LABS: Albumin 2.4 G/DL (3.4-5.0); Bilirubin,Direct 1.14 MG/DL (0.0-0.20); Bilirubin,Indirect 0.5 MG/DL (0.0-1.0); Bilirubin,Total 1.6 MG/DL (0.20-1.00)
[2021-01-28] MEDS: ISOSORBIDE MONONITRATE 30 MG TABLET PO SCH (08:48)
[2021-01-28] MEDS: ASPIRIN CHEW 81 MG TABLET PO SCH (08:48)
[2021-01-28] MEDS: MULTIVITAMIN (CENTRUM) TABLET PO SCH (08:49)
[2021-01-28] MEDS: BENZONATATE 100 MG CAPSULE PO SCH ×2 (08:49→22:07)
[2021-01-28] MEDS: FUROSEMIDE 40 MG/4 ML VIAL IV SCH ×2 (08:50→22:08)
[2021-01-28] MEDS: INSULIN REGULAR 100 UNIT/ML SUBCUT SCH ×4 (08:59→22:08)
[2021-01-28] MEDS: METOPROLOL TARTRATE 25 MG TABLET PO SCH ×2 (08:59→22:07)
[2021-01-28] MEDS: PANTOPRAZOLE 40 MG TABLET PO SCH ×2 (09:11→22:07)
[2021-01-28] MEDS: ATORVASTATIN 40 MG TABLET PO SCH (22:07)
[2021-01-29] MEDS: methylPREDNISolone SOD SUC 40 MG/1 ML VIAL IV SCH ×2 (00:26→10:55)
[2021-01-29] MEDS: PIPERACILLIN/TAZOBACTAM 3,375 MG in SODIUM CHLORIDE 0.9% 100 ML IV SCH ×2 (00:26→10:56)
[2021-01-29] MEDS: ALBUTEROL/IPRATROPIUM 3 ML NEB RESP TX SCH ×4 (01:03→19:59)
[2021-01-29 05:41] LABS: Basophils % 0.1 % (0.0-0.8); Hematocrit 43.3 VOL% (42.0-52.0); Hemoglobin 13.4 GM/DL (14.0-18.0); Immature Granulocytes % 0.6 %; Immature Granulocytes Absolute 0.12 #; Lymphocytes # 0.6 10*3/uL (1.4-4.0); Lymphocytes % 3.2 % (21.2-54.2); Mean Corpuscular HGB Conc 30.9 GM/DL (32-36); Mean Corpuscular Volume 92.7 FL (87-102); Mean Platelet Volume 12.2 FL (9.6-12.0); Monocytes % 3.9 % (1.7-12.7); NRBC # 0.02 10*3/uL; Neutrophils % 92.2 % (38.7-73.9); Platelet Count 238 T/CUMM (130-400); Red Blood Count 4.67 MC/CUMM (3.8-5.5); Red Cell Distribution Width 16.2 % (9.3-17.3); White Blood Count 19.4 T/CUMM (4-12)
[2021-01-29 06:20] LABS: Lymphocytes 5 % (20-55); Platelet Estimate Normal; Segmented Neutrophils 88 % (50-85); Total Cells Counted 100
[2021-01-29 06:28] LABS: Calcium 8.8 MG/DL (8.5-10.1); Osmolality,Calculated 291.4 MOS/KG (273-304); Potassium 4.1 MMOL/L (3.5-5.1)
[2021-01-29 06:30] LABS: % Iron Saturation 9.9 % (18-50)
[2021-01-29 06:33] LABS: Albumin 2.5 G/DL (3.4-5.0); Bilirubin,Total 2.3 MG/DL (0.20-1.00); Osmolality,Calculated 287.7 MOS/KG (273-304)
[2021-01-29] MEDS: INSULIN REGULAR 100 UNIT/ML SUBCUT SCH ×4 (08:36→21:43)
[2021-01-29] MEDS: MULTIVITAMIN (CENTRUM) TABLET PO SCH (10:16)
[2021-01-29] MEDS: PANTOPRAZOLE 40 MG TABLET PO SCH ×2 (10:16→20:25)
[2021-01-29] MEDS: ISOSORBIDE MONONITRATE 30 MG TABLET PO SCH (10:16)
[2021-01-29] MEDS: METOPROLOL TARTRATE 25 MG TABLET PO SCH ×2 (10:16→20:25)
[2021-01-29] MEDS: BENZONATATE 100 MG CAPSULE PO SCH ×2 (10:16→20:25)
[2021-01-29] MEDS: ASPIRIN CHEW 81 MG TABLET PO SCH (10:16)
[2021-01-29] MEDS: FUROSEMIDE 40 MG/4 ML VIAL IV SCH ×2 (10:55→20:25)
[2021-01-29] MEDS: DAPAGLIFLOZIN 5 MG TABLET PO SCH (16:44)
[2021-01-29] MEDS: AMOXICILLIN/CLAV 875 MG TABLET PO SCH (20:25)
[2021-01-29] MEDS: ATORVASTATIN 40 MG TABLET PO SCH (20:25)
[2021-01-30] MEDS: ALBUTEROL/IPRATROPIUM 3 ML NEB RESP TX SCH ×5 (00:14→20:05)
[2021-01-30 04:25] LABS: Basophils % 0.2 % (0.0-0.8); Hemoglobin 14.7 GM/DL (14.0-18.0); Immature Granulocytes % 0.7 %; Immature Granulocytes Absolute 0.13 #; Lymphocytes # 1.8 10*3/uL (1.4-4.0); Lymphocytes % 9.5 % (21.2-54.2); Mean Corpuscular Volume 92.6 FL (87-102); Monocytes % 7.3 % (1.7-12.7); NRBC # 0.02 10*3/uL; Neutrophils % 82.3 % (38.7-73.9); Platelet Count 254 T/CUMM (130-400); Red Blood Count 4.97 MC/CUMM (3.8-5.5); Red Cell Distribution Width 16.1 % (9.3-17.3); White Blood Count 18.7 T/CUMM (4-12)
[2021-01-30 04:44] LABS: Albumin 2.6 G/DL (3.4-5.0); Calcium 9.5 MG/DL (8.5-10.1); Osmolality,Calculated 292.4 MOS/KG (273-304); Potassium 4.2 MMOL/L (3.5-5.1); Total Protein 7.4 G/DL (6.4-8.2)
[2021-01-30] MEDS: INSULIN REGULAR 100 UNIT/ML SUBCUT SCH ×4 (07:54→20:26)
[2021-01-30] MEDS: DAPAGLIFLOZIN 5 MG TABLET PO SCH (08:02)
[2021-01-30] MEDS: MULTIVITAMIN (CENTRUM) TABLET PO SCH (08:02)
[2021-01-30] MEDS: METOPROLOL TARTRATE 25 MG TABLET PO SCH ×2 (08:02→20:25)
[2021-01-30] MEDS: BENZONATATE 100 MG CAPSULE PO SCH ×2 (08:02→20:25)
[2021-01-30] MEDS: ASPIRIN CHEW 81 MG TABLET PO SCH (08:03)
[2021-01-30] MEDS: ISOSORBIDE MONONITRATE 30 MG TABLET PO SCH (08:03)
[2021-01-30] MEDS: AMOXICILLIN/CLAV 875 MG TABLET PO SCH ×2 (08:03→20:25)
[2021-01-30] MEDS: PANTOPRAZOLE 40 MG TABLET PO SCH ×2 (08:03→20:25)
[2021-01-30] MEDS: FUROSEMIDE 40 MG/4 ML VIAL IV SCH ×2 (08:06→20:26)
[2021-01-30] MEDS ORDERED: DAPAGLIFLOZIN 5 MG TABLET PO SCH (09:00)
[2021-01-30] MEDS ORDERED: PROMETHAZINE 6.25 MG/5 ML UDCUP PO PRN (14:22)
[2021-01-30] MEDS: ATORVASTATIN 40 MG TABLET PO SCH (20:25)
[2021-01-30] MEDS: ACETAMINOPHEN 325 MG TABLET PO PRN (22:17)
[2021-01-31] MEDS: ALBUTEROL/IPRATROPIUM 3 ML NEB RESP TX SCH ×4 (01:11→20:28)
[2021-01-31 05:10] LABS: Basophils % 0.1 % (0.0-0.8); Hematocrit 46.2 VOL% (42.0-52.0); Hemoglobin 14.3 GM/DL (14.0-18.0); Immature Granulocytes % 0.7 %; Lymphocytes # 2.3 10*3/uL (1.4-4.0); Lymphocytes % 16.6 % (21.2-54.2); Mean Corpuscular Volume 91.7 FL (87-102); Mean Platelet Volume 12.4 FL (9.6-12.0); Monocytes % 7.4 % (1.7-12.7); NRBC # 0.03 10*3/uL; Neutrophils % 75.2 % (38.7-73.9); Platelet Count 256 T/CUMM (130-400); Red Blood Count 5.04 MC/CUMM (3.8-5.5); Red Cell Distribution Width 16.2 % (9.3-17.3); White Blood Count 13.6 T/CUMM (4-12)
[2021-01-31 05:31] LABS: Albumin 2.5 G/DL (3.4-5.0); Bilirubin,Total 2.4 MG/DL (0.20-1.00); Calcium 9.4 MG/DL (8.5-10.1); Osmolality,Calculated 284.8 MOS/KG (273-304); Potassium 4.2 MMOL/L (3.5-5.1); Total Protein 7.2 G/DL (6.4-8.2)
[2021-01-31 05:42] LABS: Platelet Estimate Normal
[2021-01-31 05:43] LABS: Anisocytosis 1+; Macrocytosis 1+; Target Cells Few
[2021-01-31] MEDS: INSULIN REGULAR 100 UNIT/ML SUBCUT SCH ×4 (08:22→20:40)
[2021-01-31] MEDS: ISOSORBIDE MONONITRATE 30 MG TABLET PO SCH (08:22)
[2021-01-31] MEDS: AMOXICILLIN/CLAV 875 MG TABLET PO SCH (08:22)
[2021-01-31] MEDS: DAPAGLIFLOZIN 5 MG TABLET PO SCH (08:22)
[2021-01-31] MEDS: BENZONATATE 100 MG CAPSULE PO SCH ×2 (08:22→20:41)
[2021-01-31] MEDS: MULTIVITAMIN (CENTRUM) TABLET PO SCH (08:23)
[2021-01-31] MEDS: ASPIRIN CHEW 81 MG TABLET PO SCH (08:23)
[2021-01-31] MEDS: PANTOPRAZOLE 40 MG TABLET PO SCH ×2 (08:23→20:40)
[2021-01-31] MEDS: METOPROLOL TARTRATE 25 MG TABLET PO SCH ×2 (08:23→20:41)
[2021-01-31] MEDS: FUROSEMIDE 40 MG/4 ML VIAL IV SCH ×2 (08:26→20:40)
[2021-01-31] MEDS: guaiFENesin/CODEINE 5 ML LIQUID PO PRN ×2 (13:46→22:33)
[2021-01-31] MEDS: EZETIMIBE 10 MG TABLET PO SCH (20:40)
[2021-01-31] MEDS: ENOXAPARIN 40 MG/0.4 ML SYRINGE SUBCUT SCH (20:41)
[2021-02-01] MEDS: ALBUTEROL/IPRATROPIUM 3 ML NEB RESP TX SCH ×4 (00:29→18:30)
[2021-02-01] MEDS: guaiFENesin/CODEINE 5 ML LIQUID PO PRN ×3 (04:11→22:08)
[2021-02-01 08:13] LABS: Basophils % 0.1 % (0.0-0.8); Eosinophils % 0.3 % (0.00-10.9); Hematocrit 45.8 VOL% (42.0-52.0); Hemoglobin 14.2 GM/DL (14.0-18.0); Immature Granulocytes % 0.6 %; Immature Granulocytes Absolute 0.07 #; Lymphocytes # 1.9 10*3/uL (1.4-4.0); Lymphocytes % 16.8 % (21.2-54.2); Mean Corpuscular Volume 91.8 FL (87-102); Mean Platelet Volume 12.4 FL (9.6-12.0); Monocytes % 7.5 % (1.7-12.7); NRBC # 0.03 10*3/uL; Neutrophils % 74.7 % (38.7-73.9); Platelet Count 273 T/CUMM (130-400); Red Blood Count 4.99 MC/CUMM (3.8-5.5); Red Cell Distribution Width 16.2 % (9.3-17.3); White Blood Count 11.2 T/CUMM (4-12)
[2021-02-01 08:18] LABS: Albumin 2.5 G/DL (3.4-5.0); Calcium 9.2 MG/DL (8.5-10.1); Osmolality,Calculated 283.8 MOS/KG (273-304); Potassium 3.9 MMOL/L (3.5-5.1); Total Protein 7.2 G/DL (6.4-8.2)
[2021-02-01] MEDS: INSULIN REGULAR 100 UNIT/ML SUBCUT SCH ×4 (08:21→22:03)
[2021-02-01] MEDS: ISOSORBIDE MONONITRATE 30 MG TABLET PO SCH (08:24)
[2021-02-01] MEDS: DAPAGLIFLOZIN 5 MG TABLET PO SCH (08:24)
[2021-02-01] MEDS: ASPIRIN CHEW 81 MG TABLET PO SCH (08:24)
[2021-02-01] MEDS: MULTIVITAMIN (CENTRUM) TABLET PO SCH (08:24)
[2021-02-01] MEDS: BENZONATATE 100 MG CAPSULE PO SCH ×2 (08:25→22:08)
[2021-02-01] MEDS: METOPROLOL TARTRATE 25 MG TABLET PO SCH ×2 (08:25→22:08)
[2021-02-01] MEDS: FUROSEMIDE 40 MG/4 ML VIAL IV SCH ×2 (08:25→22:08)
[2021-02-01] MEDS: PANTOPRAZOLE 40 MG TABLET PO SCH ×2 (08:25→22:08)
[2021-02-01 09:00] LABS: Hypochromasia 1+; Microcytosis 1+
[2021-02-01 09:02] LABS: Platelet Estimate Normal; Target Cells Slight
[2021-02-01] MEDS ORDERED: SERTRALINE 25 MG TABLET PO SCH (15:00)
[2021-02-01] MEDS: EZETIMIBE 10 MG TABLET PO SCH (22:08)
[2021-02-01] MEDS: ENOXAPARIN 40 MG/0.4 ML SYRINGE SUBCUT SCH (22:08)
[2021-02-02] MEDS: ALBUTEROL/IPRATROPIUM 3 ML NEB RESP TX SCH ×4 (00:47→20:16)
[2021-02-02 05:06] LABS: Basophils % 0.1 % (0.0-0.8); Eosinophils % 0.2 % (0.00-10.9); Hematocrit 45.1 VOL% (42.0-52.0); Hemoglobin 14.1 GM/DL (14.0-18.0); Immature Granulocytes % 0.5 %; Immature Granulocytes Absolute 0.06 #; Lymphocytes # 1.9 10*3/uL (1.4-4.0); Lymphocytes % 16.7 % (21.2-54.2); Mean Corpuscular HGB Conc 31.3 GM/DL (32-36); Mean Corpuscular Volume 90.6 FL (87-102); Mean Platelet Volume 12.1 FL (9.6-12.0); Monocytes % 8.1 % (1.7-12.7); NRBC # 0.04 10*3/uL; Neutrophils % 74.4 % (38.7-73.9); Platelet Count 284 T/CUMM (130-400); Red Blood Count 4.98 MC/CUMM (3.8-5.5); Red Cell Distribution Width 16.1 % (9.3-17.3); White Blood Count 11.1 T/CUMM (4-12)
[2021-02-02 05:27] LABS: Albumin 2.5 G/DL (3.4-5.0); Bilirubin,Direct 1.32 MG/DL (0.0-0.20); Bilirubin,Indirect 0.8 MG/DL (0.0-1.0); Bilirubin,Total 2.1 MG/DL (0.20-1.00)
[2021-02-02 05:35] LABS: Calcium 9.1 MG/DL (8.5-10.1); Osmolality,Calculated 281.1 MOS/KG (273-304); Potassium 3.8 MMOL/L (3.5-5.1)
[2021-02-02] MEDS: SERTRALINE 50 MG TABLET PO SCH (08:27)
[2021-02-02] MEDS: FUROSEMIDE 40 MG TABLET PO SCH ×2 (08:27→16:14)
[2021-02-02] MEDS: METOPROLOL TARTRATE 25 MG TABLET PO SCH ×2 (08:27→20:35)
[2021-02-02] MEDS: ISOSORBIDE MONONITRATE 30 MG TABLET PO SCH (08:27)
[2021-02-02] MEDS: BENZONATATE 100 MG CAPSULE PO SCH ×2 (08:27→20:35)
[2021-02-02] MEDS: ASPIRIN CHEW 81 MG TABLET PO SCH (08:27)
[2021-02-02] MEDS: MULTIVITAMIN (CENTRUM) TABLET PO SCH (08:27)
[2021-02-02] MEDS: DAPAGLIFLOZIN 5 MG TABLET PO SCH (08:27)
[2021-02-02] MEDS: PANTOPRAZOLE 40 MG TABLET PO SCH ×2 (08:27→20:35)
[2021-02-02] MEDS: INSULIN REGULAR 100 UNIT/ML SUBCUT SCH ×4 (08:37→20:04)
[2021-02-02] MEDS: SPIRONOLACTONE 25 MG TABLET PO SCH ×4 (10:16→10:24)
[2021-02-02] MEDS: POLYETHYLENE GLYCOL POWDER 17 GM PACK PO SCH (13:19)
[2021-02-02] MEDS ORDERED: TUBERCULIN SKIN TEST 0.1 ML SYRINGE INTRADERM ONE (15:00)
[2021-02-02 18:42] LABS: CDT Result Negative (Negative); CDT Specimen Source STOOL
[2021-02-02] MEDS ORDERED: LORazepam 1 MG TABLET PO ONE (20:30)
[2021-02-02] MEDS: EZETIMIBE 10 MG TABLET PO SCH (20:35)
[2021-02-02] MEDS: SPIRONOLACTONE 50 MG TABLET PO SCH (20:35)
[2021-02-02] MEDS: ENOXAPARIN 40 MG/0.4 ML SYRINGE SUBCUT SCH (20:36)
[2021-02-03] MEDS: ALBUTEROL/IPRATROPIUM 3 ML NEB RESP TX SCH ×4 (01:00→20:05)
[2021-02-03 05:18] LABS: Basophils % 0.1 % (0.0-0.8); Eosinophils % 0.2 % (0.00-10.9); Hematocrit 46.6 VOL% (42.0-52.0); Hemoglobin 15.1 GM/DL (14.0-18.0); Immature Granulocytes % 0.7 %; Immature Granulocytes Absolute 0.08 #; Lymphocytes # 2.3 10*3/uL (1.4-4.0); Lymphocytes % 20.4 % (21.2-54.2); Mean Corpuscular HGB Conc 32.4 GM/DL (32-36); Mean Corpuscular Volume 90.3 FL (87-102); NRBC # 0.06 10*3/uL; Neutrophils % 70.6 % (38.7-73.9); Platelet Count 310 T/CUMM (130-400); Red Blood Count 5.16 MC/CUMM (3.8-5.5); Red Cell Distribution Width 16.1 % (9.3-17.3); White Blood Count 11.4 T/CUMM (4-12)
[2021-02-03 05:36] LABS: Calcium 9.1 MG/DL (8.5-10.1)
[2021-02-03] MEDS: POLYETHYLENE GLYCOL POWDER 17 GM PACK PO SCH (09:55)
[2021-02-03] MEDS: PANTOPRAZOLE 40 MG TABLET PO SCH ×2 (09:56→21:08)
[2021-02-03] MEDS: METOPROLOL TARTRATE 25 MG TABLET PO SCH ×2 (09:56→21:07)
[2021-02-03] MEDS: SPIRONOLACTONE 50 MG TABLET PO SCH ×2 (09:56→21:07)
[2021-02-03] MEDS: ASPIRIN CHEW 81 MG TABLET PO SCH (09:56)
[2021-02-03] MEDS: MULTIVITAMIN (CENTRUM) TABLET PO SCH (09:57)
[2021-02-03] MEDS: FUROSEMIDE 40 MG TABLET PO SCH ×2 (09:57→15:59)
[2021-02-03] MEDS: DAPAGLIFLOZIN 5 MG TABLET PO SCH (09:57)
[2021-02-03] MEDS: BENZONATATE 100 MG CAPSULE PO SCH ×2 (09:57→21:07)
[2021-02-03] MEDS: SERTRALINE 50 MG TABLET PO SCH (09:57)
[2021-02-03] MEDS: INSULIN REGULAR 100 UNIT/ML SUBCUT SCH ×4 (10:00→21:08)
[2021-02-03] MEDS: guaiFENesin/CODEINE 5 ML LIQUID PO PRN ×2 (14:34→21:07)
[2021-02-03] MEDS: ENOXAPARIN 40 MG/0.4 ML SYRINGE SUBCUT SCH (21:07)
[2021-02-03] MEDS: EZETIMIBE 10 MG TABLET PO SCH (21:07)
[2021-02-04] MEDS: ALBUTEROL/IPRATROPIUM 3 ML NEB RESP TX SCH ×4 (00:59→19:20)
[2021-02-04 04:50] LABS: Basophils % 0.2 % (0.0-0.8); Eosinophils % 0.1 % (0.00-10.9); Hematocrit 49.5 VOL% (42.0-52.0); Hemoglobin 15.5 GM/DL (14.0-18.0); Immature Granulocytes Absolute 0.11 #; Lymphocytes # 2.4 10*3/uL (1.4-4.0); Lymphocytes % 21.7 % (21.2-54.2); Mean Corpuscular HGB Conc 31.3 GM/DL (32-36); Mean Corpuscular Volume 92.2 FL (87-102); Mean Platelet Volume 12.4 FL (9.6-12.0); Monocytes % 7.5 % (1.7-12.7); NRBC # 0.06 10*3/uL; Neutrophils % 69.5 % (38.7-73.9); Platelet Count 304 T/CUMM (130-400); Red Blood Count 5.37 MC/CUMM (3.8-5.5); Red Cell Distribution Width 17.6 % (9.3-17.3); White Blood Count 11.1 T/CUMM (4-12)
[2021-02-04 05:05] LABS: Calcium 9.2 MG/DL (8.5-10.1); Osmolality,Calculated 285.7 MOS/KG (273-304); Potassium 4.1 MMOL/L (3.5-5.1)
[2021-02-04 05:09] LABS: Calcium 9.2 MG/DL (8.5-10.1); Osmolality,Calculated 283.8 MOS/KG (273-304); Potassium 4.1 MMOL/L (3.5-5.1)
[2021-02-04] MEDS: ASPIRIN CHEW 81 MG TABLET PO SCH (09:00)
[2021-02-04] MEDS: POLYETHYLENE GLYCOL POWDER 17 GM PACK PO SCH (09:00)
[2021-02-04] MEDS: FUROSEMIDE 40 MG TABLET PO SCH ×2 (09:00→17:14)
[2021-02-04] MEDS: INSULIN REGULAR 100 UNIT/ML SUBCUT SCH ×4 (09:00→20:26)
[2021-02-04] MEDS: MULTIVITAMIN (CENTRUM) TABLET PO SCH (09:01)
[2021-02-04] MEDS: BENZONATATE 100 MG CAPSULE PO SCH ×2 (09:01→20:29)
[2021-02-04] MEDS: METOPROLOL TARTRATE 25 MG TABLET PO SCH ×2 (09:01→20:29)
[2021-02-04] MEDS: SERTRALINE 50 MG TABLET PO SCH (09:01)
[2021-02-04] MEDS: DAPAGLIFLOZIN 5 MG TABLET PO SCH (09:01)
[2021-02-04] MEDS: PANTOPRAZOLE 40 MG TABLET PO SCH ×2 (09:01→20:29)
[2021-02-04] MEDS: SPIRONOLACTONE 50 MG TABLET PO SCH ×2 (09:01→20:29)
[2021-02-04] MEDS: guaiFENesin/CODEINE 5 ML LIQUID PO PRN ×2 (09:06→20:29)
[2021-02-04] MEDS: EZETIMIBE 10 MG TABLET PO SCH (20:29)
[2021-02-04] MEDS: ENOXAPARIN 40 MG/0.4 ML SYRINGE SUBCUT SCH (20:30)
[2021-02-05] MEDS: ALBUTEROL/IPRATROPIUM 3 ML NEB RESP TX SCH ×3 (01:55→10:53)
[2021-02-05 05:12] LABS: Basophils % 0.1 % (0.0-0.8); Eosinophils % 0.1 % (0.00-10.9); Hematocrit 47.5 VOL% (42.0-52.0); Hemoglobin 14.8 GM/DL (14.0-18.0); Immature Granulocytes % 0.8 %; Immature Granulocytes Absolute 0.08 #; Lymphocytes # 2.5 10*3/uL (1.4-4.0); Mean Corpuscular HGB Conc 31.2 GM/DL (32-36); Mean Platelet Volume 12.1 FL (9.6-12.0); Monocytes % 7.2 % (1.7-12.7); NRBC # 0.12 10*3/uL; Neutrophils % 67.8 % (38.7-73.9); Platelet Count 333 T/CUMM (130-400); Red Blood Count 5.22 MC/CUMM (3.8-5.5); Red Cell Distribution Width 17.3 % (9.3-17.3); White Blood Count 10.2 T/CUMM (4-12)
[2021-02-05 05:36] LABS: Calcium 8.7 MG/DL (8.5-10.1); Osmolality,Calculated 282.8 MOS/KG (273-304); Potassium 4.2 MMOL/L (3.5-5.1)
[2021-02-05] MEDS: MULTIVITAMIN (CENTRUM) TABLET PO SCH (09:46)
[2021-02-05] MEDS: DAPAGLIFLOZIN 5 MG TABLET PO SCH (09:46)
[2021-02-05] MEDS: ASPIRIN CHEW 81 MG TABLET PO SCH (09:46)
[2021-02-05] MEDS: FUROSEMIDE 40 MG TABLET PO SCH (09:47)
[2021-02-05] MEDS: SERTRALINE 50 MG TABLET PO SCH (09:47)
[2021-02-05] MEDS: POLYETHYLENE GLYCOL POWDER 17 GM PACK PO SCH (09:47)
[2021-02-05] MEDS: METOPROLOL TARTRATE 25 MG TABLET PO SCH (09:47)
[2021-02-05] MEDS: BENZONATATE 100 MG CAPSULE PO SCH (09:47)
[2021-02-05] MEDS: SPIRONOLACTONE 50 MG TABLET PO SCH (09:47)
[2021-02-05] MEDS: PANTOPRAZOLE 40 MG TABLET PO SCH (09:47)
[2021-02-05] MEDS: INSULIN REGULAR 100 UNIT/ML SUBCUT SCH ×2 (09:51→13:10)
[2021-02-05 12:05] VITALS: BP 115/86
== END 2021-02-05 13:22 | disposition home or self-care (01) | DRG 291 ==
LOC: N.ED 11:02 → N.EDINP 13:40 → SUATTDRO 13:40 → N.EDINP 15:42 → N.TELES 15:54
PROVIDERS: ADMIT Emergency Medicine; ATTEND Internal Medicine

== ENCOUNTER 2021-02-09 10:10 | Inpatient (IN) ==
[2021-02-09 10:37] LABS: Basophils % 0.2 % (0.0-0.8); Eosinophils % 0.4 % (0.00-10.9); Hematocrit 48.9 VOL% (42.0-52.0); Hemoglobin 15.7 GM/DL (14.0-18.0); Immature Granulocytes % 0.4 %; Immature Granulocytes Absolute 0.03 #; Lymphocytes # 1.9 10*3/uL (1.4-4.0); Lymphocytes % 22.7 % (21.2-54.2); Mean Corpuscular HGB Conc 32.1 GM/DL (32-36); Mean Corpuscular Volume 91.7 FL (87-102); Mean Platelet Volume 11.4 FL (9.6-12.0); Monocytes % 7.9 % (1.7-12.7); NRBC # 0.02 10*3/uL; Neutrophils % 68.4 % (38.7-73.9); Platelet Count 242 T/CUMM (130-400); Red Blood Count 5.33 MC/CUMM (3.8-5.5); Red Cell Distribution Width 17.9 % (9.3-17.3); White Blood Count 8.3 T/CUMM (4-12)
[2021-02-09] MEDS ORDERED: FUROSEMIDE 40 MG/4 ML VIAL IV STA (10:58)
[2021-02-09 11:08] LABS: Albumin 2.7 G/DL (3.4-5.0); Calcium 8.5 MG/DL (8.5-10.1); Osmolality,Calculated 283.4 MOS/KG (273-304); Potassium 4.6 MMOL/L (3.5-5.1); Total Protein 6.8 G/DL (6.4-8.2)
[2021-02-09] MEDS ORDERED: MAGNESIUM SULF RIDER 2 GM/50 ML PREMIX IV PRN (14:58)
[2021-02-09] MEDS ORDERED: MAGNESIUM SULF RIDER 4 GM/100 ML PREMIX IV PRN (14:58)
[2021-02-09] MEDS ORDERED: GLUCAGON 1 MG VIAL IM PRN (15:28)
[2021-02-09] MEDS ORDERED: DEXTROSE 50% 25 GM/50 ML VIAL IV PRN (15:28)
[2021-02-09] MEDS ORDERED: SIMETHICONE CHEW 125 MG TABLET PO PRN (15:29)
[2021-02-09] MEDS ORDERED: LABETALOL 20 MG/4 ML SYRINGE IV PRN (15:38)
[2021-02-09] MEDS: FUROSEMIDE 40 MG/4 ML VIAL IV SCH (16:09)
[2021-02-09] MEDS: INSULIN LISPRO 100 UNIT/ML SUBCUT SCH ×2 (16:17→21:24)
[2021-02-09] MEDS: SPIRONOLACTONE 50 MG TABLET PO SCH (21:24)
[2021-02-09] MEDS: METOPROLOL TARTRATE 25 MG TABLET PO SCH (21:24)
[2021-02-09] MEDS: PANTOPRAZOLE 40 MG TABLET PO SCH (21:24)
[2021-02-09] MEDS: BENZONATATE 100 MG CAPSULE PO SCH (21:24)
[2021-02-09] MEDS ORDERED: ALBUTEROL 2.5 MG/3 ML NEB RESP TX ONE (23:18)
[2021-02-10] MEDS: guaiFENesin/CODEINE 5 ML LIQUID PO PRN ×2 (00:27→17:21)
[2021-02-10] MEDS: ALBUTEROL 2.5 MG/3 ML NEB RESP TX SCH ×4 (02:00→20:01)
[2021-02-10 05:05] LABS: Basophils % 0.1 % (0.0-0.8); Eosinophils % 0.2 % (0.00-10.9); Hematocrit 45.8 VOL% (42.0-52.0); Hemoglobin 14.2 GM/DL (14.0-18.0); Immature Granulocytes % 0.6 %; Immature Granulocytes Absolute 0.05 #; Lymphocytes # 1.2 10*3/uL (1.4-4.0); Lymphocytes % 13.7 % (21.2-54.2); Mean Corpuscular Volume 90.7 FL (87-102); Mean Platelet Volume 11.9 FL (9.6-12.0); Neutrophils % 79.4 % (38.7-73.9); Platelet Count 212 T/CUMM (130-400); Red Blood Count 5.05 MC/CUMM (3.8-5.5); Red Cell Distribution Width 17.5 % (9.3-17.3); White Blood Count 9.1 T/CUMM (4-12)
[2021-02-10 05:27] LABS: Calcium 8.8 MG/DL (8.5-10.1); Osmolality,Calculated 281.8 MOS/KG (273-304); Potassium 4.5 MMOL/L (3.5-5.1)
[2021-02-10] MEDS: SPIRONOLACTONE 50 MG TABLET PO SCH ×2 (09:07→22:06)
[2021-02-10] MEDS: MULTIVITAMIN (CENTRUM) TABLET PO SCH (09:07)
[2021-02-10] MEDS: PANTOPRAZOLE 40 MG TABLET PO SCH ×2 (09:07→22:06)
[2021-02-10] MEDS: SERTRALINE 50 MG TABLET PO SCH (09:07)
[2021-02-10] MEDS: BENZONATATE 100 MG CAPSULE PO SCH ×2 (09:07→22:06)
[2021-02-10] MEDS: METOPROLOL TARTRATE 25 MG TABLET PO SCH ×2 (09:07→22:06)
[2021-02-10] MEDS: POLYETHYLENE GLYCOL POWDER 17 GM PACK PO SCH (09:07)
[2021-02-10] MEDS: DAPAGLIFLOZIN 5 MG TABLET PO SCH (09:07)
[2021-02-10] MEDS: ASPIRIN EC 81 MG TABLET PO SCH (09:07)
[2021-02-10] MEDS: FUROSEMIDE 40 MG/4 ML VIAL IV SCH ×2 (09:08→16:28)
[2021-02-10] MEDS: INSULIN LISPRO 100 UNIT/ML SUBCUT SCH ×4 (09:08→22:07)
[2021-02-10] MEDS ORDERED: HEPARIN 5,000 UNIT/1 ML VIAL SUBCUT SCH (09:30)
[2021-02-11] MEDS: ALBUTEROL 2.5 MG/3 ML NEB RESP TX SCH ×4 (00:15→20:10)
[2021-02-11 05:13] LABS: Basophils % 0.1 % (0.0-0.8); Eosinophils % 0.1 % (0.00-10.9); Hematocrit 43.3 VOL% (42.0-52.0); Hemoglobin 13.9 GM/DL (14.0-18.0); Immature Granulocytes % 0.5 %; Immature Granulocytes Absolute 0.06 #; Lymphocytes # 0.9 10*3/uL (1.4-4.0); Lymphocytes % 7.4 % (21.2-54.2); Mean Corpuscular HGB Conc 32.1 GM/DL (32-36); Mean Corpuscular Volume 91.9 FL (87-102); Mean Platelet Volume 11.7 FL (9.6-12.0); Monocytes % 8.2 % (1.7-12.7); Neutrophils % 83.7 % (38.7-73.9); Platelet Count 209 T/CUMM (130-400); Red Blood Count 4.71 MC/CUMM (3.8-5.5); Red Cell Distribution Width 17.4 % (9.3-17.3); White Blood Count 11.6 T/CUMM (4-12)
[2021-02-11 05:44] LABS: Calcium 8.6 MG/DL (8.5-10.1)
[2021-02-11 05:53] LABS: Calcium 8.9 MG/DL (8.5-10.1); Osmolality,Calculated 282.7 MOS/KG (273-304)
[2021-02-11] MEDS: INSULIN LISPRO 100 UNIT/ML SUBCUT SCH ×3 (09:41→16:17)
[2021-02-11] MEDS: ASPIRIN EC 81 MG TABLET PO SCH (09:57)
[2021-02-11] MEDS: MULTIVITAMIN (CENTRUM) TABLET PO SCH (09:57)
[2021-02-11] MEDS: FUROSEMIDE 40 MG/4 ML VIAL IV SCH ×2 (09:57→15:25)
[2021-02-11] MEDS: DAPAGLIFLOZIN 5 MG TABLET PO SCH (09:57)
[2021-02-11] MEDS: SERTRALINE 50 MG TABLET PO SCH (09:57)
[2021-02-11] MEDS: PANTOPRAZOLE 40 MG TABLET PO SCH ×2 (09:57→21:55)
[2021-02-11] MEDS: BENZONATATE 100 MG CAPSULE PO SCH ×2 (09:57→21:55)
[2021-02-11] MEDS: SPIRONOLACTONE 50 MG TABLET PO SCH ×2 (09:58→21:55)
[2021-02-11] MEDS: POLYETHYLENE GLYCOL POWDER 17 GM PACK PO SCH (09:58)
[2021-02-11] MEDS: METOPROLOL TARTRATE 25 MG TABLET PO SCH (09:58)
[2021-02-11] MEDS: PIPERACILLIN/TAZOBACTAM 3,375 MG in SODIUM CHLORIDE 0.9% 100 ML IV SCH ×2 (10:04→15:25)
[2021-02-12] MEDS: ALBUTEROL 2.5 MG/3 ML NEB RESP TX SCH ×4 (00:27→19:10)
[2021-02-12] MEDS: guaiFENesin/CODEINE 5 ML LIQUID PO PRN ×2 (01:26→09:49)
[2021-02-12] MEDS: PIPERACILLIN/TAZOBACTAM 3,375 MG in SODIUM CHLORIDE 0.9% 100 ML IV SCH ×3 (01:27→17:30)
[2021-02-12] MEDS: INSULIN LISPRO 100 UNIT/ML SUBCUT SCH ×5 (02:35→21:12)
[2021-02-12 05:10] LABS: Basophils % 0.2 % (0.0-0.8); Eosinophils % 0.1 % (0.00-10.9); Hematocrit 45.2 VOL% (42.0-52.0); Immature Granulocytes % 0.8 %; Immature Granulocytes Absolute 0.14 #; Lymphocytes # 1.4 10*3/uL (1.4-4.0); Mean Corpuscular Volume 91.1 FL (87-102); Mean Platelet Volume 12.1 FL (9.6-12.0); Neutrophils % 82.9 % (38.7-73.9); Platelet Count 200 T/CUMM (130-400); Red Blood Count 4.96 MC/CUMM (3.8-5.5); Red Cell Distribution Width 17.5 % (9.3-17.3); White Blood Count 17.3 T/CUMM (4-12)
[2021-02-12 05:37] LABS: Calcium 8.9 MG/DL (8.5-10.1); Osmolality,Calculated 277.2 MOS/KG (273-304); Potassium 4.4 MMOL/L (3.5-5.1)
[2021-02-12] MEDS ORDERED: FUROSEMIDE 40 MG TABLET PO SCH (09:00)
[2021-02-12] MEDS: DAPAGLIFLOZIN 5 MG TABLET PO SCH (09:50)
[2021-02-12] MEDS: BENZONATATE 100 MG CAPSULE PO SCH ×2 (09:50→21:12)
[2021-02-12] MEDS: SPIRONOLACTONE 50 MG TABLET PO SCH ×2 (09:50→21:12)
[2021-02-12] MEDS: ASPIRIN EC 81 MG TABLET PO SCH (09:50)
[2021-02-12] MEDS: PANTOPRAZOLE 40 MG TABLET PO SCH ×2 (09:50→21:12)
[2021-02-12] MEDS: SERTRALINE 50 MG TABLET PO SCH (09:50)
[2021-02-12] MEDS: MULTIVITAMIN (CENTRUM) TABLET PO SCH (09:50)
[2021-02-12] MEDS: FUROSEMIDE 40 MG/4 ML VIAL IV SCH ×2 (09:51→17:30)
[2021-02-12] MEDS: POLYETHYLENE GLYCOL POWDER 17 GM PACK PO SCH (12:50)
[2021-02-12] MEDS ORDERED: METOPROLOL SUCCINATE XL 25 MG TABLET PO SCH (19:00)
[2021-02-12 20:23] LABS: Bilirubin,Urine Negative (Negative); Blood, Urine Small mg/dL (Negative); Glucose,Urine (UA) >=500 mg/dL (Negative); Hyaline Casts,Urine 1 /LPF (0-3); Ketones,Urine Negative (Negative); Nitrite,Urine Negative (Negative); Protein,Urine Negative; RBC,Urine 2 /HPF (0-4); Squamous Epithelial Cell,Urine Occasional /HPF (0-10); Urine Appearance CLEAR (Clear); Urine Color Yellow (Yellow)
[2021-02-12] MEDS: METOPROLOL SUCCINATE XL 25 MG TABLET PO SCH (21:12)
[2021-02-13] MEDS: PIPERACILLIN/TAZOBACTAM 3,375 MG in SODIUM CHLORIDE 0.9% 100 ML IV SCH ×3 (00:42→16:30)
[2021-02-13] MEDS: ALBUTEROL 2.5 MG/3 ML NEB RESP TX SCH ×5 (01:37→23:48)
[2021-02-13] MEDS: guaiFENesin/CODEINE 5 ML LIQUID PO PRN (06:36)
[2021-02-13 06:43] LABS: Basophils % 0.1 % (0.0-0.8); Eosinophils % 0.1 % (0.00-10.9); Hematocrit 41.4 VOL% (42.0-52.0); Hemoglobin 12.9 GM/DL (14.0-18.0); Immature Granulocytes % 0.7 %; Immature Granulocytes Absolute 0.12 #; Lymphocytes # 1.4 10*3/uL (1.4-4.0); Lymphocytes % 7.9 % (21.2-54.2); Mean Corpuscular HGB Conc 31.2 GM/DL (32-36); Mean Platelet Volume 11.9 FL (9.6-12.0); Neutrophils % 83.2 % (38.7-73.9); Platelet Count 193 T/CUMM (130-400); Red Blood Count 4.55 MC/CUMM (3.8-5.5); White Blood Count 17.6 T/CUMM (4-12)
[2021-02-13 06:56] LABS: Albumin 2.3 G/DL (3.4-5.0); Bilirubin,Direct 3.56 MG/DL (0.0-0.20); Bilirubin,Indirect 1.2 MG/DL (0.0-1.0); Bilirubin,Total 4.8 MG/DL (0.20-1.00); Total Protein 6.5 G/DL (6.4-8.2)
[2021-02-13 07:03] LABS: Calcium 8.8 MG/DL (8.5-10.1); Potassium 4.2 MMOL/L (3.5-5.1)
[2021-02-13] MEDS: INSULIN LISPRO 100 UNIT/ML SUBCUT SCH ×4 (07:51→22:08)
[2021-02-13] MEDS: MULTIVITAMIN (CENTRUM) TABLET PO SCH (08:01)
[2021-02-13] MEDS: ASPIRIN EC 81 MG TABLET PO SCH (08:01)
[2021-02-13] MEDS: DAPAGLIFLOZIN 5 MG TABLET PO SCH (08:01)
[2021-02-13] MEDS: PANTOPRAZOLE 40 MG TABLET PO SCH ×2 (08:01→22:07)
[2021-02-13] MEDS: SERTRALINE 50 MG TABLET PO SCH (08:02)
[2021-02-13] MEDS: BENZONATATE 100 MG CAPSULE PO SCH ×2 (08:02→22:07)
[2021-02-13] MEDS: SPIRONOLACTONE 50 MG TABLET PO SCH ×2 (08:02→22:07)
[2021-02-13] MEDS: FUROSEMIDE 40 MG/4 ML VIAL IV SCH ×2 (08:05→16:30)
[2021-02-13] MEDS: POLYETHYLENE GLYCOL POWDER 17 GM PACK PO SCH (08:43)
[2021-02-13] MEDS ORDERED: PROMETHAZINE 6.25 MG/5 ML UDCUP PO PRN (11:55)
[2021-02-13] MEDS: METOPROLOL SUCCINATE XL 25 MG TABLET PO SCH (22:07)
[2021-02-14] MEDS: PIPERACILLIN/TAZOBACTAM 3,375 MG in SODIUM CHLORIDE 0.9% 100 ML IV SCH ×3 (00:55→21:32)
[2021-02-14] MEDS: ALBUTEROL 2.5 MG/3 ML NEB RESP TX SCH ×3 (06:56→20:05)
[2021-02-14 07:28] LABS: Basophils % 0.2 % (0.0-0.8); Hematocrit 40.7 VOL% (42.0-52.0); Hemoglobin 12.9 GM/DL (14.0-18.0); Immature Granulocytes % 0.8 %; Immature Granulocytes Absolute 0.13 #; Lymphocytes # 1.2 10*3/uL (1.4-4.0); Lymphocytes % 7.7 % (21.2-54.2); Mean Corpuscular HGB Conc 31.7 GM/DL (32-36); Mean Corpuscular Volume 90.6 FL (87-102); Mean Platelet Volume 12.2 FL (9.6-12.0); Monocytes % 6.4 % (1.7-12.7); Neutrophils % 84.9 % (38.7-73.9); Platelet Count 178 T/CUMM (130-400); Red Blood Count 4.49 MC/CUMM (3.8-5.5); Red Cell Distribution Width 17.2 % (9.3-17.3); White Blood Count 15.7 T/CUMM (4-12)
[2021-02-14 07:42] LABS: INR 1.3; PT Patient Result 14.3 SECS (10.5-12.0); Partial Thromboplastin Time 30.5 SECS (23.8-32.1)
[2021-02-14 07:53] LABS: Calcium 8.9 MG/DL (8.5-10.1); Osmolality,Calculated 274.2 MOS/KG (273-304); Potassium 4.1 MMOL/L (3.5-5.1)
[2021-02-14] MEDS ORDERED: METOPROLOL TARTRATE 5 MG/5 ML VIAL IV ONE ×2 (08:15→08:16)
[2021-02-14] MEDS ORDERED: AMIODARONE INJ 150 MG in DEXTROSE 5% 100 ML IV ONE (08:15)
[2021-02-14] MEDS ORDERED: AMIODARONE 150 MG/3 ML VIAL ONE (08:15)
[2021-02-14] MEDS: INSULIN LISPRO 100 UNIT/ML SUBCUT SCH ×4 (08:41→21:20)
[2021-02-14] MEDS ORDERED: AMIODARONE INJ 450 MG in DEXTROSE 5% 241 ML IV SCH (09:00)
[2021-02-14] MEDS: SPIRONOLACTONE 50 MG TABLET PO SCH ×2 (11:16→21:19)
[2021-02-14] MEDS: SERTRALINE 50 MG TABLET PO SCH (11:16)
[2021-02-14] MEDS: PANTOPRAZOLE 40 MG TABLET PO SCH ×2 (11:17→21:19)
[2021-02-14] MEDS: DAPAGLIFLOZIN 5 MG TABLET PO SCH (11:17)
[2021-02-14] MEDS: MULTIVITAMIN (CENTRUM) TABLET PO SCH (11:17)
[2021-02-14] MEDS: BENZONATATE 100 MG CAPSULE PO SCH ×2 (11:17→21:19)
[2021-02-14] MEDS: POLYETHYLENE GLYCOL POWDER 17 GM PACK PO SCH (11:18)
[2021-02-14] MEDS: FUROSEMIDE 40 MG/4 ML VIAL IV SCH ×2 (11:21→17:30)
[2021-02-14] MEDS ORDERED: BISACODYL 10 MG SUPP RECTAL ONE (17:41)
[2021-02-14] MEDS: METOPROLOL SUCCINATE XL 25 MG TABLET PO SCH (21:19)
[2021-02-15] MEDS: ALBUTEROL 2.5 MG/3 ML NEB RESP TX SCH ×4 (00:32→19:43)
[2021-02-15 04:39] LABS: Basophils % 0.1 % (0.0-0.8); Hematocrit 39.2 VOL% (42.0-52.0); Hemoglobin 12.6 GM/DL (14.0-18.0); Immature Granulocytes % 0.8 %; Immature Granulocytes Absolute 0.13 #; Lymphocytes # 1.2 10*3/uL (1.4-4.0); Lymphocytes % 7.4 % (21.2-54.2); Mean Corpuscular HGB Conc 32.1 GM/DL (32-36); Mean Corpuscular Volume 90.1 FL (87-102); Mean Platelet Volume 12.2 FL (9.6-12.0); Monocytes % 5.2 % (1.7-12.7); NRBC # 0.02 10*3/uL; Neutrophils % 86.5 % (38.7-73.9); Platelet Count 193 T/CUMM (130-400); Red Blood Count 4.35 MC/CUMM (3.8-5.5); Red Cell Distribution Width 17.2 % (9.3-17.3); White Blood Count 15.9 T/CUMM (4-12)
[2021-02-15 05:03] LABS: Calcium 8.6 MG/DL (8.5-10.1); Potassium 4.5 MMOL/L (3.5-5.1)
[2021-02-15] MEDS: PIPERACILLIN/TAZOBACTAM 3,375 MG in SODIUM CHLORIDE 0.9% 100 ML IV SCH ×2 (06:05→17:42)
[2021-02-15] MEDS: INSULIN LISPRO 100 UNIT/ML SUBCUT SCH ×3 (09:53→16:52)
[2021-02-15] MEDS: PANTOPRAZOLE 40 MG TABLET PO SCH ×2 (09:53→21:14)
[2021-02-15] MEDS: SERTRALINE 50 MG TABLET PO SCH (09:54)
[2021-02-15] MEDS: BENZONATATE 100 MG CAPSULE PO SCH ×2 (09:54→21:14)
[2021-02-15] MEDS: SPIRONOLACTONE 50 MG TABLET PO SCH ×2 (09:54→21:14)
[2021-02-15] MEDS: METOPROLOL SUCCINATE XL 25 MG TABLET PO SCH ×2 (09:54→21:14)
[2021-02-15] MEDS: MULTIVITAMIN (CENTRUM) TABLET PO SCH (09:54)
[2021-02-15] MEDS: POLYETHYLENE GLYCOL POWDER 17 GM PACK PO SCH (09:55)
[2021-02-15] MEDS: FUROSEMIDE 40 MG/4 ML VIAL IV SCH (11:01)
[2021-02-15] MEDS: EZETIMIBE 10 MG TABLET PO SCH (21:15)
[2021-02-16] MEDS: ALBUTEROL 2.5 MG/3 ML NEB RESP TX SCH ×4 (00:57→20:05)
[2021-02-16] MEDS: INSULIN LISPRO 100 UNIT/ML SUBCUT SCH ×4 (03:36→16:04)
[2021-02-16 06:21] LABS: Basophils % 0.1 % (0.0-0.8); Eosinophils % 0.3 % (0.00-10.9); Hematocrit 40.9 VOL% (42.0-52.0); Immature Granulocytes % 0.6 %; Immature Granulocytes Absolute 0.08 #; Lymphocytes # 1.5 10*3/uL (1.4-4.0); Mean Corpuscular HGB Conc 31.8 GM/DL (32-36); Mean Corpuscular Volume 90.5 FL (87-102); Mean Platelet Volume 12.1 FL (9.6-12.0); Monocytes % 5.6 % (1.7-12.7); NRBC # 0.03 10*3/uL; Neutrophils % 82.4 % (38.7-73.9); Platelet Count 201 T/CUMM (130-400); Red Blood Count 4.52 MC/CUMM (3.8-5.5); Red Cell Distribution Width 17.5 % (9.3-17.3); White Blood Count 13.4 T/CUMM (4-12)
[2021-02-16 06:48] LABS: Calcium 8.9 MG/DL (8.5-10.1); Potassium 4.3 MMOL/L (3.5-5.1)
[2021-02-16] MEDS: metOLazone 5 MG TABLET PO SCH (10:30)
[2021-02-16] MEDS: BENZONATATE 100 MG CAPSULE PO SCH ×2 (10:30→22:32)
[2021-02-16] MEDS: SERTRALINE 50 MG TABLET PO SCH (10:30)
[2021-02-16] MEDS: MULTIVITAMIN (CENTRUM) TABLET PO SCH (10:30)
[2021-02-16] MEDS: FUROSEMIDE 80 MG TABLET PO SCH (10:30)
[2021-02-16] MEDS: SPIRONOLACTONE 50 MG TABLET PO SCH ×2 (10:30→22:32)
[2021-02-16] MEDS: PANTOPRAZOLE 40 MG TABLET PO SCH ×2 (10:30→22:32)
[2021-02-16] MEDS: METOPROLOL SUCCINATE XL 25 MG TABLET PO SCH ×2 (10:32→22:32)
[2021-02-16] MEDS: POLYETHYLENE GLYCOL POWDER 17 GM PACK PO SCH (10:46)
[2021-02-16] MEDS: PIPERACILLIN/TAZOBACTAM 3,375 MG in SODIUM CHLORIDE 0.9% 100 ML IV SCH (16:25)
[2021-02-16] MEDS: EZETIMIBE 10 MG TABLET PO SCH (22:32)
[2021-02-16] MEDS: ASCORBIC ACID 500 MG TABLET PO SCH (22:32)
[2021-02-17] MEDS: ALBUTEROL 2.5 MG/3 ML NEB RESP TX SCH ×4 (01:46→19:30)
[2021-02-17 05:13] LABS: Basophils % 0.2 % (0.0-0.8); Eosinophils # 0.1 10*3/uL (0.0-0.87); Eosinophils % 0.4 % (0.00-10.9); Hematocrit 41.2 VOL% (42.0-52.0); Hemoglobin 12.8 GM/DL (14.0-18.0); Immature Granulocytes % 0.7 %; Immature Granulocytes Absolute 0.09 #; Lymphocytes # 1.4 10*3/uL (1.4-4.0); Lymphocytes % 11.9 % (21.2-54.2); Mean Corpuscular HGB Conc 31.1 GM/DL (32-36); Mean Corpuscular Volume 90.5 FL (87-102); Monocytes % 5.8 % (1.7-12.7); NRBC # 0.02 10*3/uL; Platelet Count 190 T/CUMM (130-400); Red Blood Count 4.55 MC/CUMM (3.8-5.5); Red Cell Distribution Width 18.5 % (9.3-17.3); White Blood Count 12.1 T/CUMM (4-12)
[2021-02-17] MEDS: INSULIN LISPRO 100 UNIT/ML SUBCUT SCH ×5 (05:48→21:05)
[2021-02-17 05:51] LABS: Calcium 8.9 MG/DL (8.5-10.1); Potassium 3.7 MMOL/L (3.5-5.1)
[2021-02-17] MEDS: PANTOPRAZOLE 40 MG TABLET PO SCH ×2 (08:46→21:05)
[2021-02-17] MEDS: SPIRONOLACTONE 50 MG TABLET PO SCH ×2 (08:46→21:04)
[2021-02-17] MEDS: METOPROLOL SUCCINATE XL 25 MG TABLET PO SCH ×2 (08:46→21:05)
[2021-02-17] MEDS: ASCORBIC ACID 500 MG TABLET PO SCH ×2 (08:47→21:04)
[2021-02-17] MEDS: MULTIVITAMIN (CENTRUM) TABLET PO SCH (08:47)
[2021-02-17] MEDS: BENZONATATE 100 MG CAPSULE PO SCH ×2 (08:47→21:04)
[2021-02-17] MEDS: metOLazone 5 MG TABLET PO SCH (08:47)
[2021-02-17] MEDS: SERTRALINE 50 MG TABLET PO SCH (08:47)
[2021-02-17] MEDS: FUROSEMIDE 80 MG TABLET PO SCH (08:47)
[2021-02-17] MEDS: POLYETHYLENE GLYCOL POWDER 17 GM PACK PO SCH (08:48)
[2021-02-17] MEDS: PIPERACILLIN/TAZOBACTAM 3,375 MG in SODIUM CHLORIDE 0.9% 100 ML IV SCH ×2 (11:06→21:07)
[2021-02-17] MEDS: AMIODARONE 200 MG TABLET PO SCH ×2 (14:22→21:04)
[2021-02-17] MEDS: EZETIMIBE 10 MG TABLET PO SCH (21:05)
[2021-02-18] MEDS: ALBUTEROL 2.5 MG/3 ML NEB RESP TX SCH ×3 (01:45→12:21)
[2021-02-18] MEDS: PIPERACILLIN/TAZOBACTAM 3,375 MG in SODIUM CHLORIDE 0.9% 100 ML IV SCH ×2 (04:33→11:34)
[2021-02-18 05:47] LABS: Basophils % 0.1 % (0.0-0.8); Eosinophils % 0.3 % (0.00-10.9); Hematocrit 41.4 VOL% (42.0-52.0); Immature Granulocytes % 0.8 %; Lymphocytes # 1.4 10*3/uL (1.4-4.0); Lymphocytes % 11.4 % (21.2-54.2); Mean Corpuscular HGB Conc 31.4 GM/DL (32-36); Mean Corpuscular Volume 89.2 FL (87-102); Mean Platelet Volume 11.7 FL (9.6-12.0); Monocytes % 5.2 % (1.7-12.7); Neutrophils % 82.2 % (38.7-73.9); Platelet Count 209 T/CUMM (130-400); Red Blood Count 4.64 MC/CUMM (3.8-5.5); Red Cell Distribution Width 18.2 % (9.3-17.3)
[2021-02-18 06:03] LABS: Calcium 9.2 MG/DL (8.5-10.1); Osmolality,Calculated 276.2 MOS/KG (273-304); Potassium 3.8 MMOL/L (3.5-5.1)
[2021-02-18 06:14] LABS: Anisocytosis 1+; Hypochromasia 1+; Polychromasia 1+
[2021-02-18] MEDS: POLYETHYLENE GLYCOL POWDER 17 GM PACK PO SCH (08:07)
[2021-02-18] MEDS: INSULIN LISPRO 100 UNIT/ML SUBCUT SCH ×2 (08:51→11:34)
[2021-02-18] MEDS: METOPROLOL SUCCINATE XL 25 MG TABLET PO SCH (08:53)
[2021-02-18] MEDS: BENZONATATE 100 MG CAPSULE PO SCH (08:57)
[2021-02-18] MEDS: SPIRONOLACTONE 50 MG TABLET PO SCH (08:57)
[2021-02-18] MEDS: FUROSEMIDE 80 MG TABLET PO SCH (08:57)
[2021-02-18] MEDS: ASCORBIC ACID 500 MG TABLET PO SCH (08:57)
[2021-02-18] MEDS: SERTRALINE 50 MG TABLET PO SCH (08:57)
[2021-02-18] MEDS: metOLazone 5 MG TABLET PO SCH (08:57)
[2021-02-18] MEDS: PANTOPRAZOLE 40 MG TABLET PO SCH (08:57)
[2021-02-18] MEDS: AMIODARONE 200 MG TABLET PO SCH (08:57)
[2021-02-18] MEDS: MULTIVITAMIN (CENTRUM) TABLET PO SCH (08:57)
[2021-02-18] MEDS ORDERED: metOLazone 5 MG TABLET PO PRN (12:28)
[2021-02-18 12:33] VITALS: BP 96/69
== END 2021-02-18 15:32 | disposition hospice, home (50) | DRG 291 ==
LOC: N.EDINP 10:10 → N.ED 10:10 → SUATTDRO 16:30 → N.TELES 23:27 → SUATTDRO 02-12 09:19
PROVIDERS: ADMIT Internal Medicine; ATTEND Internal Medicine

== ENCOUNTER 2021-03-07 10:02 | Inpatient (IN) ==
[2021-03-07] MEDS ORDERED: FUROSEMIDE 40 MG/4 ML VIAL IV STA (11:10)
[2021-03-07 11:45] LABS: Basophils # 0.1 10*3/uL (0.0-0.2); Basophils % 0.5 % (0.0-0.8); Eosinophils % 0.4 % (0.00-10.9); Hematocrit 44.9 VOL% (42.0-52.0); Immature Granulocytes % 0.4 %; Immature Granulocytes Absolute 0.04 #; Lymphocytes # 1.8 10*3/uL (1.4-4.0); Lymphocytes % 17.9 % (21.2-54.2); Mean Corpuscular HGB Conc 31.2 GM/DL (32-36); Mean Corpuscular Volume 90.3 FL (87-102); Mean Platelet Volume 11.5 FL (9.6-12.0); NRBC # 0.02 10*3/uL; Neutrophils % 75.8 % (38.7-73.9); Platelet Count 274 T/CUMM (130-400); Red Blood Count 4.97 MC/CUMM (3.8-5.5); Red Cell Distribution Width 17.6 % (9.3-17.3); White Blood Count 10.2 T/CUMM (4-12)
[2021-03-07 12:21] LABS: Albumin 2.8 G/DL (3.4-5.0); Bilirubin,Total 2.6 MG/DL (0.20-1.00); Osmolality,Calculated 275.1 MOS/KG (273-304); Potassium 3.3 MMOL/L (3.5-5.1)
[2021-03-07 12:23] LABS: Barbiturates Screen,Urine Negative (Negative); Benzodiazepines Screen,Urine Negative (Negative); Cannabinoid Screen,Urine Negative (Negative); Opiate Screen,Urine Negative (Negative); Phencyclidine Screen,Urine Negative (Negative)
[2021-03-07] MEDS ORDERED: DEXTROSE 50% 25 GM/50 ML VIAL IV PRN (14:30)
[2021-03-07] MEDS ORDERED: MAGNESIUM SULF RIDER 2 GM/50 ML PREMIX IV PRN (14:30)
[2021-03-07] MEDS ORDERED: GLUCAGON 1 MG VIAL IM PRN ×2 (14:30→14:35)
[2021-03-07] MEDS ORDERED: POTASSIUM CHLORIDE RIDER 10 MEQ/100 ML PREMIX IV PRN (14:30)
[2021-03-07] MEDS ORDERED: MAGNESIUM SULF RIDER 4 GM/100 ML PREMIX IV PRN (14:30)
[2021-03-07] MEDS ORDERED: ONDANSETRON 4 MG/2 ML VIAL IV PRN (14:35)
[2021-03-07] MEDS ORDERED: SIMETHICONE CHEW 125 MG TABLET PO PRN (14:35)
[2021-03-07] MEDS ORDERED: DOCUSATE SODIUM 100 MG CAPSULE PO PRN (14:35)
[2021-03-07] MEDS ORDERED: DEXTROSE 50% 25 GM/50 ML SYRINGE IV PRN (14:56)
[2021-03-07] MEDS ORDERED: ENOXAPARIN 40 MG/0.4 ML SYRINGE SUBCUT SCH (15:00)
[2021-03-07] MEDS: PANTOPRAZOLE 40 MG TABLET PO SCH (15:15)
[2021-03-07] MEDS: DOBUTamine 500 MG/250 ML PREMIX IV SCH (15:24)
[2021-03-07] MEDS: FUROSEMIDE 40 MG/4 ML VIAL IV SCH (16:19)
[2021-03-07] MEDS: INSULIN LISPRO 100 UNIT/ML SUBCUT SCH ×2 (17:28→21:49)
[2021-03-07] MEDS: ALBUMIN 25% 25 GM/100 ML VIAL IV SCH (21:49)
[2021-03-08 04:31] LABS: Basophils # 0.1 10*3/uL (0.0-0.2); Basophils % 0.6 % (0.0-0.8); Eosinophils # 0.1 10*3/uL (0.0-0.87); Eosinophils % 1.1 % (0.00-10.9); Hematocrit 40.2 VOL% (42.0-52.0); Hemoglobin 12.5 GM/DL (14.0-18.0); Immature Granulocytes % 0.6 %; Immature Granulocytes Absolute 0.05 #; Lymphocytes # 1.7 10*3/uL (1.4-4.0); Lymphocytes % 19.2 % (21.2-54.2); Mean Corpuscular HGB Conc 31.1 GM/DL (32-36); Mean Corpuscular Volume 90.3 FL (87-102); Mean Platelet Volume 11.2 FL (9.6-12.0); Neutrophils % 71.5 % (38.7-73.9); Platelet Count 226 T/CUMM (130-400); Red Blood Count 4.45 MC/CUMM (3.8-5.5); Red Cell Distribution Width 17.3 % (9.3-17.3); White Blood Count 9.1 T/CUMM (4-12)
[2021-03-08 04:44] LABS: Albumin 2.3 G/DL (3.4-5.0); Bilirubin,Total 2.1 MG/DL (0.20-1.00); Calcium 8.4 MG/DL (8.5-10.1); Osmolality,Calculated 283.3 MOS/KG (273-304); Risk Ratio 5.59; Total Protein 7.1 G/DL (6.4-8.2); VLDL Cholesterol 23.4 MG/DL
[2021-03-08] MEDS: DOBUTamine 500 MG/250 ML PREMIX IV SCH (06:52)
[2021-03-08] MEDS ORDERED: MAGNESIUM SULF RIDER 2 GM/50 ML PREMIX IV ONE (09:23)
[2021-03-08] MEDS: MULTIVITAMIN (CENTRUM) TABLET PO SCH (10:35)
[2021-03-08] MEDS: APIXABAN 5 MG TABLET PO SCH ×2 (10:36→21:32)
[2021-03-08] MEDS: FUROSEMIDE 40 MG/4 ML VIAL IV SCH ×2 (10:36→16:06)
[2021-03-08] MEDS: ASCORBIC ACID 500 MG TABLET PO SCH ×2 (10:36→21:32)
[2021-03-08] MEDS: ASPIRIN EC 81 MG TABLET PO SCH (10:36)
[2021-03-08] MEDS: PANTOPRAZOLE 40 MG TABLET PO SCH (10:36)
[2021-03-08] MEDS: METOPROLOL SUCCINATE XL 25 MG TABLET PO SCH ×2 (10:37→21:32)
[2021-03-08] MEDS: SPIRONOLACTONE 50 MG TABLET PO SCH ×2 (10:37→21:32)
[2021-03-08] MEDS: SERTRALINE 50 MG TABLET PO SCH (10:37)
[2021-03-08] MEDS: ALBUMIN 25% 25 GM/100 ML VIAL IV SCH ×2 (10:38→21:33)
[2021-03-08] MEDS: INSULIN LISPRO 100 UNIT/ML SUBCUT SCH ×4 (10:39→21:33)
[2021-03-08] MEDS: EZETIMIBE 10 MG TABLET PO SCH (21:32)
[2021-03-09] MEDS: DOBUTamine 500 MG/250 ML PREMIX IV SCH ×4 (01:21→23:36)
[2021-03-09 05:53] LABS: Basophils % 0.3 % (0.0-0.8); Eosinophils # 0.1 10*3/uL (0.0-0.87); Hemoglobin 12.3 GM/DL (14.0-18.0); Immature Granulocytes % 0.5 %; Immature Granulocytes Absolute 0.05 #; Lymphocytes # 1.4 10*3/uL (1.4-4.0); Lymphocytes % 13.5 % (21.2-54.2); Mean Corpuscular HGB Conc 30.8 GM/DL (32-36); Mean Corpuscular Volume 91.1 FL (87-102); Mean Platelet Volume 11.1 FL (9.6-12.0); Monocytes % 6.9 % (1.7-12.7); Neutrophils % 77.8 % (38.7-73.9); Platelet Count 236 T/CUMM (130-400); Red Blood Count 4.39 MC/CUMM (3.8-5.5); Red Cell Distribution Width 17.7 % (9.3-17.3); White Blood Count 10.1 T/CUMM (4-12)
[2021-03-09 06:06] LABS: Osmolality,Calculated 280.4 MOS/KG (273-304); Potassium 2.7 MMOL/L (3.5-5.1)
[2021-03-09] MEDS ORDERED: POTASSIUM CHLORIDE 20 MEQ TABLET PO ONE (07:04)
[2021-03-09] MEDS: INSULIN LISPRO 100 UNIT/ML SUBCUT SCH ×4 (08:01→21:40)
[2021-03-09] MEDS: ALBUMIN 25% 25 GM/100 ML VIAL IV SCH (09:57)
[2021-03-09] MEDS: APIXABAN 5 MG TABLET PO SCH ×2 (10:02→21:40)
[2021-03-09] MEDS: ASCORBIC ACID 500 MG TABLET PO SCH ×2 (10:02→21:40)
[2021-03-09] MEDS: MULTIVITAMIN (CENTRUM) TABLET PO SCH (10:02)
[2021-03-09] MEDS: PANTOPRAZOLE 40 MG TABLET PO SCH (10:03)
[2021-03-09] MEDS: SPIRONOLACTONE 50 MG TABLET PO SCH ×2 (10:03→21:39)
[2021-03-09] MEDS: ASPIRIN EC 81 MG TABLET PO SCH (10:03)
[2021-03-09] MEDS: SERTRALINE 50 MG TABLET PO SCH (10:03)
[2021-03-09] MEDS: FUROSEMIDE 40 MG/4 ML VIAL IV SCH ×2 (12:01→16:55)
[2021-03-09] MEDS: guaiFENesin 200 MG/10 ML UDCUP PO PRN ×2 (14:00→16:58)
[2021-03-09] MEDS: EZETIMIBE 10 MG TABLET PO SCH (21:39)
[2021-03-09] MEDS: POTASSIUM CHLORIDE 20 MEQ TABLET PO SCH (21:39)
[2021-03-10 05:15] LABS: Basophils % 0.4 % (0.0-0.8); Eosinophils # 0.1 10*3/uL (0.0-0.87); Eosinophils % 1.2 % (0.00-10.9); Hematocrit 40.4 VOL% (42.0-52.0); Hemoglobin 12.4 GM/DL (14.0-18.0); Immature Granulocytes % 0.6 %; Immature Granulocytes Absolute 0.06 #; Lymphocytes # 1.8 10*3/uL (1.4-4.0); Lymphocytes % 17.4 % (21.2-54.2); Mean Corpuscular HGB Conc 30.7 GM/DL (32-36); Mean Corpuscular Volume 92.2 FL (87-102); Mean Platelet Volume 11.3 FL (9.6-12.0); Monocytes % 6.7 % (1.7-12.7); Neutrophils % 73.7 % (38.7-73.9); Platelet Count 255 T/CUMM (130-400); Red Blood Count 4.38 MC/CUMM (3.8-5.5); Red Cell Distribution Width 18.1 % (9.3-17.3); White Blood Count 10.4 T/CUMM (4-12)
[2021-03-10 05:40] LABS: Calcium 8.9 MG/DL (8.5-10.1); Osmolality,Calculated 283.1 MOS/KG (273-304); Potassium 3.2 MMOL/L (3.5-5.1)
[2021-03-10] MEDS: SERTRALINE 50 MG TABLET PO SCH (09:02)
[2021-03-10] MEDS: SPIRONOLACTONE 50 MG TABLET PO SCH ×2 (09:02→20:50)
[2021-03-10] MEDS: APIXABAN 5 MG TABLET PO SCH ×2 (09:02→20:50)
[2021-03-10] MEDS: ASCORBIC ACID 500 MG TABLET PO SCH ×2 (09:02→20:50)
[2021-03-10] MEDS: POTASSIUM CHLORIDE 20 MEQ TABLET PO SCH ×2 (09:02→20:50)
[2021-03-10] MEDS: PANTOPRAZOLE 40 MG TABLET PO SCH (09:02)
[2021-03-10] MEDS: ASPIRIN EC 81 MG TABLET PO SCH (09:02)
[2021-03-10] MEDS: MULTIVITAMIN (CENTRUM) TABLET PO SCH (09:02)
[2021-03-10] MEDS ORDERED: metOLazone 5 MG TABLET PO PRN (09:04)
[2021-03-10] MEDS: INSULIN LISPRO 100 UNIT/ML SUBCUT SCH ×4 (09:05→20:50)
[2021-03-10] MEDS: FUROSEMIDE 40 MG/4 ML VIAL IV SCH (09:48)
[2021-03-10] MEDS: POTASSIUM CHLORIDE 20 MEQ TABLET PO PRN ×2 (12:53→15:04)
[2021-03-10] MEDS: guaiFENesin 200 MG/10 ML UDCUP PO PRN (12:57)
[2021-03-10] MEDS: FUROSEMIDE 40 MG TABLET PO SCH (16:29)
[2021-03-10] MEDS: EZETIMIBE 10 MG TABLET PO SCH (20:50)
[2021-03-10] MEDS: METOPROLOL SUCCINATE XL 25 MG TABLET PO SCH (21:47)
[2021-03-11 05:32] LABS: Basophils % 0.2 % (0.0-0.8); Hematocrit 45.1 VOL% (42.0-52.0); Hemoglobin 13.8 GM/DL (14.0-18.0); Immature Granulocytes Absolute 0.15 #; Lymphocytes # 1.9 10*3/uL (1.4-4.0); Lymphocytes % 12.5 % (21.2-54.2); Mean Corpuscular HGB Conc 30.6 GM/DL (32-36); Mean Corpuscular Volume 92.2 FL (87-102); Mean Platelet Volume 11.3 FL (9.6-12.0); Monocytes % 5.8 % (1.7-12.7); NRBC # 0.02 10*3/uL; Neutrophils % 80.5 % (38.7-73.9); Platelet Count 308 T/CUMM (130-400); Red Blood Count 4.89 MC/CUMM (3.8-5.5); Red Cell Distribution Width 18.4 % (9.3-17.3); White Blood Count 14.9 T/CUMM (4-12)
[2021-03-11 05:55] LABS: Calcium 9.6 MG/DL (8.5-10.1); Osmolality,Calculated 267.5 MOS/KG (273-304)
[2021-03-11] MEDS: INSULIN LISPRO 100 UNIT/ML SUBCUT SCH ×2 (07:38→12:22)
[2021-03-11] MEDS: MULTIVITAMIN (CENTRUM) TABLET PO SCH (08:30)
[2021-03-11] MEDS: SERTRALINE 50 MG TABLET PO SCH (08:30)
[2021-03-11] MEDS: ASPIRIN EC 81 MG TABLET PO SCH (08:30)
[2021-03-11] MEDS: APIXABAN 5 MG TABLET PO SCH (08:31)
[2021-03-11] MEDS: FUROSEMIDE 40 MG TABLET PO SCH (08:31)
[2021-03-11] MEDS: METOPROLOL SUCCINATE XL 25 MG TABLET PO SCH (08:31)
[2021-03-11] MEDS: SPIRONOLACTONE 50 MG TABLET PO SCH (08:31)
[2021-03-11] MEDS: ASCORBIC ACID 500 MG TABLET PO SCH (08:31)
[2021-03-11] MEDS: PANTOPRAZOLE 40 MG TABLET PO SCH (08:31)
[2021-03-11] MEDS: POTASSIUM CHLORIDE 20 MEQ TABLET PO SCH (08:33)
[2021-03-11 12:07] VITALS: BP 113/79
== END 2021-03-11 16:21 | disposition home health service (06) | DRG 291 ==
LOC: N.ED 10:02 → SUATTDRO 14:34 → N.EDINP 14:34 → N.TELES 16:30
PROVIDERS: ADMIT Internal Medicine; ATTEND Emergency Medicine

== ENCOUNTER 2021-03-16 18:11 | Inpatient (IN) ==
[2021-03-16] MEDS ORDERED: FUROSEMIDE 100 MG/10 ML VIAL IV STA (22:52)
[2021-03-17 00:24] LABS: INR 1.3; PT Patient Result 14.6 SECS (10.5-12.0)
[2021-03-17 00:38] LABS: Basophils % 0.3 % (0.0-0.8); Eosinophils # 0.1 10*3/uL (0.0-0.87); Eosinophils % 1.2 % (0.00-10.9); Hematocrit 41.5 VOL% (42.0-52.0); Hemoglobin 13.1 GM/DL (14.0-18.0); Immature Granulocytes % 0.8 %; Immature Granulocytes Absolute 0.08 #; Lymphocytes # 2.3 10*3/uL (1.4-4.0); Mean Corpuscular HGB Conc 31.6 GM/DL (32-36); Mean Corpuscular Volume 88.7 FL (87-102); Mean Platelet Volume 11.1 FL (9.6-12.0); Monocytes % 5.4 % (1.7-12.7); Neutrophils % 69.3 % (38.7-73.9); Platelet Count 304 T/CUMM (130-400); Red Blood Count 4.68 MC/CUMM (3.8-5.5); Red Cell Distribution Width 18.6 % (9.3-17.3); White Blood Count 9.9 T/CUMM (4-12)
[2021-03-17 00:47] LABS: Albumin 2.6 G/DL (3.4-5.0); Bilirubin,Total 2.3 MG/DL (0.20-1.00); Osmolality,Calculated 285.7 MOS/KG (273-304); Potassium 3.5 MMOL/L (3.5-5.1); Total Protein 7.6 G/DL (6.4-8.2)
[2021-03-17 00:54] LABS: Bacteria,Urine Occasional /HPF (Few); Bilirubin,Urine Negative (Negative); Blood, Urine Negative (Negative); Glucose,Urine (UA) Negative (Negative); Ketones,Urine Negative (Negative); Nitrite,Urine Negative (Negative); Protein,Urine 30 MG/DL; RBC,Urine 2 /HPF (0-4); Urine Appearance CLEAR (Clear); Urine Color Yellow (Yellow); Urine Specific Gravity 1.011 (1.001-1.035)
[2021-03-17 02:25] LABS: Barbiturates Screen,Urine Negative (Negative); Benzodiazepines Screen,Urine Negative (Negative); Cannabinoid Screen,Urine Negative (Negative); Opiate Screen,Urine Negative (Negative); Phencyclidine Screen,Urine Negative (Negative)
[2021-03-17] MEDS ORDERED: ONDANSETRON 4 MG/2 ML VIAL IV PRN (03:28)
[2021-03-17] MEDS ORDERED: GLUCAGON 1 MG VIAL IM PRN ×2 (03:28→03:33)
[2021-03-17] MEDS ORDERED: POTASSIUM CHLORIDE 20 MEQ TABLET PO ONE (03:35)
[2021-03-17] MEDS ORDERED: POTASSIUM CHLORIDE 20 MEQ TABLET PO PRN (03:36)
[2021-03-17] MEDS ORDERED: metOLazone 5 MG TABLET PO PRN (06:15)
[2021-03-17] MEDS: INSULIN LISPRO 100 UNIT/ML SUBCUT SCH ×4 (08:37→22:49)
[2021-03-17] MEDS ORDERED: METOPROLOL SUCCINATE XL 25 MG TABLET PO SCH (09:00)
[2021-03-17] MEDS: SPIRONOLACTONE 50 MG TABLET PO SCH ×2 (09:15→21:24)
[2021-03-17] MEDS: FUROSEMIDE 40 MG/4 ML VIAL IV SCH ×2 (09:15→16:59)
[2021-03-17] MEDS: DOBUTamine 500 MG/250 ML PREMIX IV SCH ×2 (09:15→23:14)
[2021-03-17] MEDS: APIXABAN 5 MG TABLET PO SCH ×2 (09:15→21:24)
[2021-03-17] MEDS: PANTOPRAZOLE 40 MG TABLET PO SCH (09:15)
[2021-03-17] MEDS: ASPIRIN EC 81 MG TABLET PO SCH (09:15)
[2021-03-17] MEDS ORDERED: metOLazone 5 MG TABLET PO STA (14:03)
[2021-03-17] MEDS ORDERED: EZETIMIBE 10 MG TABLET PO SCH (21:00)
[2021-03-18 05:09] LABS: Basophils % 0.5 % (0.0-0.8); Eosinophils # 0.1 10*3/uL (0.0-0.87); Eosinophils % 1.3 % (0.00-10.9); Hematocrit 40.1 VOL% (42.0-52.0); Hemoglobin 12.5 GM/DL (14.0-18.0); Immature Granulocytes % 0.3 %; Immature Granulocytes Absolute 0.02 #; Lymphocytes # 1.4 10*3/uL (1.4-4.0); Lymphocytes % 18.6 % (21.2-54.2); Mean Corpuscular HGB Conc 31.2 GM/DL (32-36); Mean Corpuscular Volume 90.1 FL (87-102); Mean Platelet Volume 10.3 FL (9.6-12.0); Monocytes % 6.5 % (1.7-12.7); Neutrophils % 72.8 % (38.7-73.9); Platelet Count 261 T/CUMM (130-400); Red Blood Count 4.45 MC/CUMM (3.8-5.5); Red Cell Distribution Width 18.5 % (9.3-17.3); White Blood Count 7.5 T/CUMM (4-12)
[2021-03-18 05:33] LABS: Albumin 2.4 G/DL (3.4-5.0); Calcium 8.8 MG/DL (8.5-10.1); Osmolality,Calculated 291.1 MOS/KG (273-304); Potassium 3.5 MMOL/L (3.5-5.1); Total Protein 6.9 G/DL (6.4-8.2)
[2021-03-18] MEDS ORDERED: POTASSIUM CHLORIDE 20 MEQ TABLET PO ONE (07:46)
[2021-03-18] MEDS: INSULIN LISPRO 100 UNIT/ML SUBCUT SCH ×4 (07:55→21:16)
[2021-03-18] MEDS: FUROSEMIDE 40 MG/4 ML VIAL IV SCH ×2 (08:52→16:16)
[2021-03-18] MEDS: ASPIRIN EC 81 MG TABLET PO SCH (11:32)
[2021-03-18] MEDS: SPIRONOLACTONE 50 MG TABLET PO SCH ×2 (11:32→21:15)
[2021-03-18] MEDS: APIXABAN 5 MG TABLET PO SCH ×2 (11:32→21:15)
[2021-03-18] MEDS: PANTOPRAZOLE 40 MG TABLET PO SCH (11:32)
[2021-03-18] MEDS: DOBUTamine 500 MG/250 ML PREMIX IV SCH (14:09)
[2021-03-18] MEDS: ASCORBIC ACID 500 MG TABLET PO SCH (21:15)
[2021-03-19 07:17] LABS: Basophils % 0.5 % (0.0-0.8); Eosinophils # 0.1 10*3/uL (0.0-0.87); Eosinophils % 1.7 % (0.00-10.9); Hematocrit 44.3 VOL% (42.0-52.0); Hemoglobin 13.5 GM/DL (14.0-18.0); Immature Granulocytes % 0.4 %; Immature Granulocytes Absolute 0.03 #; Lymphocytes # 1.5 10*3/uL (1.4-4.0); Lymphocytes % 20.5 % (21.2-54.2); Mean Corpuscular HGB Conc 30.5 GM/DL (32-36); Mean Corpuscular Volume 91.2 FL (87-102); Mean Platelet Volume 10.8 FL (9.6-12.0); Monocytes % 6.4 % (1.7-12.7); Neutrophils % 70.5 % (38.7-73.9); Platelet Count 291 T/CUMM (130-400); Red Blood Count 4.86 MC/CUMM (3.8-5.5); Red Cell Distribution Width 18.6 % (9.3-17.3); White Blood Count 7.5 T/CUMM (4-12)
[2021-03-19 07:38] LABS: Albumin 2.7 G/DL (3.4-5.0); Bilirubin,Total 3.7 MG/DL (0.20-1.00); Calcium 9.1 MG/DL (8.5-10.1); Osmolality,Calculated 288.1 MOS/KG (273-304); Total Protein 7.9 G/DL (6.4-8.2)
[2021-03-19] MEDS: MULTIVITAMIN (CENTRUM) TABLET PO SCH (10:45)
[2021-03-19] MEDS: PANTOPRAZOLE 40 MG TABLET PO SCH (10:45)
[2021-03-19] MEDS: INSULIN LISPRO 100 UNIT/ML SUBCUT SCH ×4 (10:46→21:14)
[2021-03-19] MEDS: SPIRONOLACTONE 50 MG TABLET PO SCH ×2 (10:46→21:14)
[2021-03-19] MEDS: ASPIRIN EC 81 MG TABLET PO SCH (10:46)
[2021-03-19] MEDS: ASCORBIC ACID 500 MG TABLET PO SCH ×2 (10:46→21:14)
[2021-03-19] MEDS: FUROSEMIDE 40 MG/4 ML VIAL IV SCH ×2 (10:46→16:44)
[2021-03-19] MEDS: DOBUTamine 500 MG/250 ML PREMIX IV SCH (10:50)
[2021-03-20] MEDS: DOBUTamine 500 MG/250 ML PREMIX IV SCH ×2 (02:22→14:48)
[2021-03-20 05:24] LABS: Basophils % 0.5 % (0.0-0.8); Eosinophils # 0.2 10*3/uL (0.0-0.87); Eosinophils % 2.7 % (0.00-10.9); Hematocrit 41.5 VOL% (42.0-52.0); Hemoglobin 12.9 GM/DL (14.0-18.0); Immature Granulocytes % 0.4 %; Immature Granulocytes Absolute 0.03 #; Lymphocytes # 1.7 10*3/uL (1.4-4.0); Lymphocytes % 21.6 % (21.2-54.2); Mean Corpuscular HGB Conc 31.1 GM/DL (32-36); Mean Corpuscular Volume 89.6 FL (87-102); Mean Platelet Volume 10.4 FL (9.6-12.0); Monocytes % 6.7 % (1.7-12.7); Neutrophils % 68.1 % (38.7-73.9); Platelet Count 241 T/CUMM (130-400); Red Blood Count 4.63 MC/CUMM (3.8-5.5); Red Cell Distribution Width 18.3 % (9.3-17.3); White Blood Count 7.8 T/CUMM (4-12)
[2021-03-20 05:43] LABS: Albumin 2.5 G/DL (3.4-5.0); Bilirubin,Total 2.9 MG/DL (0.20-1.00); Calcium 8.6 MG/DL (8.5-10.1); Osmolality,Calculated 281.5 MOS/KG (273-304); Potassium 3.6 MMOL/L (3.5-5.1); Total Protein 7.4 G/DL (6.4-8.2)
[2021-03-20] MEDS: FUROSEMIDE 40 MG/4 ML VIAL IV SCH ×2 (09:49→16:10)
[2021-03-20] MEDS: ASCORBIC ACID 500 MG TABLET PO SCH ×2 (09:49→21:51)
[2021-03-20] MEDS: MULTIVITAMIN (CENTRUM) TABLET PO SCH (09:49)
[2021-03-20] MEDS: PANTOPRAZOLE 40 MG TABLET PO SCH (09:49)
[2021-03-20] MEDS: ASPIRIN EC 81 MG TABLET PO SCH (09:49)
[2021-03-20] MEDS: SPIRONOLACTONE 50 MG TABLET PO SCH ×2 (09:50→21:52)
[2021-03-20] MEDS: INSULIN LISPRO 100 UNIT/ML SUBCUT SCH ×4 (13:56→21:52)
[2021-03-20] MEDS: APIXABAN 5 MG TABLET PO SCH (21:52)
[2021-03-21 06:08] LABS: Albumin 2.9 G/DL (3.4-5.0); Bilirubin,Total 4.3 MG/DL (0.20-1.00); Calcium 8.9 MG/DL (8.5-10.1); Osmolality,Calculated 279.5 MOS/KG (273-304); Potassium 3.7 MMOL/L (3.5-5.1); Total Protein 8.2 G/DL (6.4-8.2)
[2021-03-21] MEDS: DOBUTamine 500 MG/250 ML PREMIX IV SCH ×3 (07:11→15:55)
[2021-03-21] MEDS: PANTOPRAZOLE 40 MG TABLET PO SCH (08:01)
[2021-03-21] MEDS: APIXABAN 5 MG TABLET PO SCH ×2 (08:01→20:34)
[2021-03-21] MEDS: ASPIRIN EC 81 MG TABLET PO SCH (08:01)
[2021-03-21] MEDS: ASCORBIC ACID 500 MG TABLET PO SCH ×2 (08:01→20:34)
[2021-03-21] MEDS: MULTIVITAMIN (CENTRUM) TABLET PO SCH (08:01)
[2021-03-21] MEDS: SPIRONOLACTONE 50 MG TABLET PO SCH ×2 (08:01→20:34)
[2021-03-21] MEDS: FUROSEMIDE 40 MG/4 ML VIAL IV SCH ×2 (08:02→15:22)
[2021-03-21] MEDS: INSULIN LISPRO 100 UNIT/ML SUBCUT SCH ×4 (08:22→20:35)
[2021-03-21] MEDS ORDERED: guaiFENesin/DM ER 600-30 MG TABLET PO PRN (10:20)
[2021-03-21] MEDS ORDERED: SKIN HEALING OINT (AQUAPHOR) 50 GM TUBE TOP PRN (10:20)
[2021-03-21] MEDS: guaiFENesin/CODEINE 5 ML LIQUID PO PRN (22:59)
[2021-03-22 06:11] LABS: Basophils # 0.1 10*3/uL (0.0-0.2); Basophils % 0.6 % (0.0-0.8); Eosinophils # 0.1 10*3/uL (0.0-0.87); Eosinophils % 0.6 % (0.00-10.9); Hematocrit 42.4 VOL% (42.0-52.0); Immature Granulocytes % 0.3 %; Immature Granulocytes Absolute 0.03 #; Lymphocytes # 2.1 10*3/uL (1.4-4.0); Lymphocytes % 22.7 % (21.2-54.2); Mean Corpuscular HGB Conc 30.7 GM/DL (32-36); Mean Corpuscular Volume 89.8 FL (87-102); Mean Platelet Volume 11.9 FL (9.6-12.0); Neutrophils % 68.8 % (38.7-73.9); Platelet Count 264 T/CUMM (130-400); Red Blood Count 4.72 MC/CUMM (3.8-5.5); Red Cell Distribution Width 18.6 % (9.3-17.3)
[2021-03-22 06:38] LABS: Osmolality,Calculated 278.8 MOS/KG (273-304); Potassium 4.3 MMOL/L (3.5-5.1)
[2021-03-22] MEDS ORDERED: MAGNESIUM SULF RIDER 2 GM/50 ML PREMIX IV ONE (06:54)
[2021-03-22] MEDS: INSULIN LISPRO 100 UNIT/ML SUBCUT SCH ×4 (08:43→20:40)
[2021-03-22] MEDS: ASCORBIC ACID 500 MG TABLET PO SCH ×2 (09:15→20:40)
[2021-03-22] MEDS: APIXABAN 5 MG TABLET PO SCH ×2 (09:16→20:40)
[2021-03-22] MEDS: ASPIRIN EC 81 MG TABLET PO SCH (09:16)
[2021-03-22] MEDS: PANTOPRAZOLE 40 MG TABLET PO SCH (09:16)
[2021-03-22] MEDS: SPIRONOLACTONE 50 MG TABLET PO SCH ×2 (09:16→20:40)
[2021-03-22] MEDS: MULTIVITAMIN (CENTRUM) TABLET PO SCH (09:16)
[2021-03-22] MEDS: FUROSEMIDE 40 MG/4 ML VIAL IV SCH ×2 (10:04→16:18)
[2021-03-22] MEDS: guaiFENesin/CODEINE 5 ML LIQUID PO PRN ×2 (16:12→21:40)
[2021-03-23] MEDS: traZODone 50 MG TABLET PO PRN ×2 (00:32→21:03)
[2021-03-23 05:17] LABS: Basophils % 0.3 % (0.0-0.8); Hematocrit 46.1 VOL% (42.0-52.0); Hemoglobin 14.1 GM/DL (14.0-18.0); Immature Granulocytes % 0.7 %; Immature Granulocytes Absolute 0.07 #; Lymphocytes # 1.8 10*3/uL (1.4-4.0); Lymphocytes % 18.4 % (21.2-54.2); Mean Corpuscular HGB Conc 30.6 GM/DL (32-36); Mean Corpuscular Volume 89.5 FL (87-102); Mean Platelet Volume 11.4 FL (9.6-12.0); Monocytes % 6.4 % (1.7-12.7); NRBC # 0.02 10*3/uL; Neutrophils % 74.2 % (38.7-73.9); Platelet Count 298 T/CUMM (130-400); Red Blood Count 5.15 MC/CUMM (3.8-5.5); Red Cell Distribution Width 18.9 % (9.3-17.3); White Blood Count 9.9 T/CUMM (4-12)
[2021-03-23 05:38] LABS: Albumin 3.1 G/DL (3.4-5.0); Bilirubin,Total 4.8 MG/DL (0.20-1.00); Osmolality,Calculated 274.4 MOS/KG (273-304); Potassium 5.1 MMOL/L (3.5-5.1); Total Protein 8.6 G/DL (6.4-8.2)
[2021-03-23] MEDS: INSULIN LISPRO 100 UNIT/ML SUBCUT SCH ×4 (08:06→21:04)
[2021-03-23] MEDS: SPIRONOLACTONE 50 MG TABLET PO SCH (09:35)
[2021-03-23] MEDS: FUROSEMIDE 40 MG/4 ML VIAL IV SCH (09:35)
[2021-03-23] MEDS: MULTIVITAMIN (CENTRUM) TABLET PO SCH (09:40)
[2021-03-23] MEDS: APIXABAN 5 MG TABLET PO SCH ×2 (09:40→21:03)
[2021-03-23] MEDS: PANTOPRAZOLE 40 MG TABLET PO SCH (09:40)
[2021-03-23] MEDS: ASCORBIC ACID 500 MG TABLET PO SCH ×2 (09:40→21:03)
[2021-03-23] MEDS: ASPIRIN EC 81 MG TABLET PO SCH (09:40)
[2021-03-23] MEDS: FUROSEMIDE 40 MG TABLET PO SCH (16:23)
[2021-03-23] MEDS: METOPROLOL TARTRATE 25 MG TABLET PO SCH (21:03)
[2021-03-23] MEDS: guaiFENesin/CODEINE 5 ML LIQUID PO PRN (21:03)
[2021-03-24 06:03] LABS: Basophils % 0.2 % (0.0-0.8); Eosinophils % 0.2 % (0.00-10.9); Hematocrit 42.2 VOL% (42.0-52.0); Hemoglobin 13.3 GM/DL (14.0-18.0); Immature Granulocytes % 0.7 %; Immature Granulocytes Absolute 0.06 #; Lymphocytes # 1.7 10*3/uL (1.4-4.0); Lymphocytes % 18.4 % (21.2-54.2); Mean Corpuscular HGB Conc 31.5 GM/DL (32-36); Mean Corpuscular Volume 88.8 FL (87-102); Mean Platelet Volume 11.7 FL (9.6-12.0); Monocytes % 6.8 % (1.7-12.7); NRBC # 0.04 10*3/uL; Neutrophils % 73.7 % (38.7-73.9); Platelet Count 284 T/CUMM (130-400); Red Blood Count 4.75 MC/CUMM (3.8-5.5); Red Cell Distribution Width 18.8 % (9.3-17.3); White Blood Count 9.2 T/CUMM (4-12)
[2021-03-24 06:10] LABS: Calcium 9.5 MG/DL (8.5-10.1); Osmolality,Calculated 281.2 MOS/KG (273-304); Potassium 4.3 MMOL/L (3.5-5.1)
[2021-03-24] MEDS: METOPROLOL TARTRATE 25 MG TABLET PO SCH (09:10)
[2021-03-24] MEDS: INSULIN LISPRO 100 UNIT/ML SUBCUT SCH ×2 (09:10→12:19)
[2021-03-24] MEDS: ASPIRIN EC 81 MG TABLET PO SCH (09:13)
[2021-03-24] MEDS: ASCORBIC ACID 500 MG TABLET PO SCH (09:13)
[2021-03-24] MEDS: MULTIVITAMIN (CENTRUM) TABLET PO SCH (09:13)
[2021-03-24] MEDS: PANTOPRAZOLE 40 MG TABLET PO SCH (09:13)
[2021-03-24] MEDS: APIXABAN 5 MG TABLET PO SCH (09:13)
[2021-03-24] MEDS: FUROSEMIDE 40 MG TABLET PO SCH (09:14)
[2021-03-24 13:42] VITALS: BP 112/85
[2021-03-24] MEDS ORDERED: SPIRONOLACTONE 25 MG TABLET PO SCH (21:00)
[2021-03-25] MEDS ORDERED: SPIRONOLACTONE 25 MG TABLET PO SCH (09:00)
== END 2021-03-24 14:46 | disposition hospice, home (50) | DRG 291 ==
LOC: N.EDINP 18:11 → N.ED 18:11 → N.EDINP 03-17 14:52 → N.TELEN 03-17 15:04 → SUATTDRO 03-17 16:02
PROVIDERS: ADMIT Internal Medicine; ATTEND Internal Medicine